=== PATIENT | male | born 1985 | race Hispanic/Latino ===

== ENCOUNTER 2018-08-30 03:58 | Emergency (ER) | payer MEDICAID, SELFPAY ==
[2018-08-30] MEDS ORDERED: HYDROCODONE/APAP 7.5/325 MG TAB ONE (04:20)
--- NOTE | 2018-08-30 05:50 | ER ---
Nurse's Notes [facility] Name: Arpit Sanchez Age: 33 yrs Sex: Male : 1985 Arrival Date: 08/30/2018 Time: 04:01 Bed 5 Private MD: Diagnosis: Contusion left elbow. Small joint effusion. Possible fracture left elbow Presentation: 08/30 04:07 Presenting complaint: Patient states: he fell backwards Tristan night injuring his left bb elbow which is hurting down his left arm pain is 7/10. Transition of care: patient was not received from another setting of care. Onset of symptoms was August 29, 2018. Risk Assessment: Do you want to hurt yourself or someone else? Patient reports no desire to harm self or others. Initial Sepsis Screen: Does the patient meet any 2 criteria? No. Patient's initial sepsis screen is negative. Does the patient have a suspected source of infection? No. Patient's initial sepsis screen is negative. Care prior to arrival: None. 04:07 Method Of Arrival: Ambulatory bb 04:07 Acuity: JUSTO 4 bb Historical: - Allergies: 04:09 No Known Allergies; bb - Home Meds: 04:09 None [Active]; bb - PMHx: 04:09 None; bb - PSHx: 04:09 ear surgery; bb - Immunization history:: Adult Immunizations up to date. - Social history:: Smoking status: Patient uses tobacco products, smokes one-half pack cigarettes per day, Patient uses alcohol, occasionally. Patient/guardian denies using street drugs. - Ebola Screening: : No symptoms or risks identified at this time. Screenin:07 Abuse screen: Denies threats or abuse. Denies injuries from another. Nutritional rr5 screening: No deficits noted. Tuberculosis screening: No symptoms or risk factors identified. Fall Risk Fall in past 12 months (25 points). Total Jensen Fall Scale indicates Low Risk Score (25-44 pts). Fall prevention measures have been instituted. Side Rails Up X 2 Frequent Obs/Assesments occuring Family Present and informed to notify staff if they need to leave bedside As available Patient and Family Educated on Fall Prevention Program and strategies. Assessment: 04:07 General: Appears in no apparent distress. uncomfortable, Behavior is calm, cooperative, rr5 appropriate for age. 04:07 Pain: Complains of pain in left elbow and wrist Pain does not radiate. Pain currently rr5 is 7 out of 10 on a pain scale. Quality of pain is described as aching, Pain began suddenly, 2-3 days ago. Is intermittent, Alleviated by repositioning. Neuro: Level of Consciousness is awake, alert, obeys commands, Oriented to person, place, time, situation. Cardiovascular: Capillary refill < 3 seconds Patient's skin is warm and dry. Respiratory: Airway is patent Respiratory effort is even, unlabored, Respiratory pattern is regular, symmetrical. GI: Abdomen is round. : No signs and/or symptoms were reported regarding the genitourinary system. EENT: No signs and/or symptoms were reported regarding the EENT system. Derm: No signs and/or symptoms reported regarding the dermatologic system. Musculoskeletal: Capillary refill < 3 seconds, Range of motion: intact in all extremities, Swelling present in left elbow. 05:35 Reassessment: Patient appears in no apparent distress at this time. Patient and/or rr5 family updated on plan of care and expected duration. Pain level reassessed. no complaints made. awaiting for ct report. Patient states feeling better. Patient states symptoms have improved. 05:56 Reassessment: Patient appears in no apparent distress at this time. Patient and/or rr5 family updated on plan of care and expected duration. Pain level reassessed. discharge instruction given and explained with no complaints made. Patient states feeling better. Patient states symptoms have improved. Vital Signs: 04:09 BP 136 / 82; Pulse 97; Resp 16 S; Temp 98(O); Pulse Ox 97% on R/A; Weight 129.27 kg bb (R); Height 6 ft. 0 in. (182.88 cm) (R); Pain 7/10; 05:10 BP 112 / 76; Pulse 88; Resp 17; Pulse Ox 99% ; rr5 04:09 Body Mass Index 38.65 (129.27 kg, 182.88 cm) bb ED Course: 04:01 Patient arrived in ED. es 04:06 Maxwell Nath MD is Attending Physician. pkl 04:07 Patient has correct armband on for positive identification. Bed in low position. Call rr5 light in reach. Side rails up X 1. Pulse ox on. NIBP on. 04:08 Triage completed. bb 04:09 Arm band placed on Patient placed in an exam room, on a stretcher, on pulse oximetry. bb Family accompanied patient. 04:11 Eduardo Walters, RN is Primary Nurse. rr5 04:41 X-ray completed. Portable x-ray completed in exam room. Patient tolerated procedure kw well. 04:42 Elbow Left 3 View XRAY In Process Unspecified. EDMS 05:[address] via wheelchair. kw1 05:27 Elbow Left Wo Con In Process Unspecified. EDMS 05:30 CT completed. Patient tolerated procedure well. Patient moved back from CT. kw1 05:48 Florian Jeff MD is Referral Physician. pkl 05:50 Clavicle/Shoulder strap applied on left clavicle/shoulder. rr5 05:57 No provider procedures requiring assistance completed. Patient did not have IV access rr5 during this emergency room visit. Administered Medications: 04:12 Drug: [place] (7.5 mg-325 mg) 1 tabs Route: PO; rr5 05:56 Follow up: Response: No adverse reaction rr5 Outcome: 05:50 Discharge ordered by . pkl 05:58 Discharged to home ambulatory, with family. rr5 05:58 Condition: stable 05:58 Instructed on discharge instructions, follow up and referral plans. medication usage, Demonstrated understanding of instructions, follow-up care, medications, Prescriptions given X 1. 06:10 Patient left the ED. rr5 Signatures: Dispatcher [employer] Maxwell Campos MD MD pkAna Rosa Tuttle Brenda, RN RN Azra Alfonso Kimberly kw1 Eduardo Walters, RN RN rr5
--- NOTE | 2018-08-30 05:50 | EDPHYS ---
Physician Documentation [facility] Name: Arpit Sanchez Age: 33 yrs Sex: Male : 1985 Arrival Date: 08/30/2018 Time: 04:01 Bed 5 Private MD: ED Physician Maxwell Nath HPI: 08/30 04:11 This 33 yrs old Male presents to ER via Ambulatory with complaints of Arm pkl Pain, Swelling. 04:11 The patient or guardian complains of contusion, injury. The complaints affect the left pkl elbow. Context: resulted from a fall. Onset: The symptoms/episode began/occurred 2 day(s) ago. Associated signs and symptoms: The patient has no apparent associated signs or symptoms. Historical: - Allergies: 04:09 No Known Allergies; bb - Home Meds: 04:09 None [Active]; bb - PMHx: 04:09 None; bb - PSHx: 04:09 ear surgery; bb - Immunization history:: Adult Immunizations up to date. - Social history:: Smoking status: Patient uses tobacco products, smokes one-half pack cigarettes per day, Patient uses alcohol, occasionally. Patient/guardian denies using street drugs. - Ebola Screening: : No symptoms or risks identified at this time. ROS: 04:11 Eyes: Negative for injury, pain, redness, and discharge, ENT: Negative for injury, pkl pain, and discharge, Neck: Negative for injury, pain, and swelling, Cardiovascular: Negative for chest pain, palpitations, and edema, Respiratory: Negative for shortness of breath, cough, wheezing, and pleuritic chest pain, Abdomen/GI: Negative for abdominal pain, nausea, vomiting, diarrhea, and constipation, Back: Negative for injury and pain, : Negative for injury, bleeding, discharge, and swelling, Skin: Negative for injury, rash, and discoloration, Neuro: Negative for headache, weakness, numbness, tingling, and seizure. 04:11 MS/extremity: Positive for pain, tenderness, of the left elbow. Exam: 04:11 Head/Face: Normocephalic, atraumatic. Eyes: Pupils equal round and reactive to light, pkl extra-ocular motions intact. Lids and lashes normal. Conjunctiva and sclera are non-icteric and not injected. Cornea within normal limits. Periorbital areas with no swelling, redness, or edema. ENT: Nares patent. No nasal discharge, no septal abnormalities noted. Tympanic membranes are normal and external auditory canals are clear. Oropharynx with no redness, swelling, or masses, exudates, or evidence of obstruction, uvula midline. Mucous membranes moist. Neck: Trachea midline, no thyromegaly or masses palpated, and no cervical lymphadenopathy. Supple, full range of motion without nuchal rigidity, or vertebral point tenderness. No Meningismus. Chest/axilla: Normal chest wall appearance and motion. Nontender with no deformity. No lesions are appreciated. Cardiovascular: Regular rate and rhythm with a normal S1 and S2. No gallops, murmurs, or rubs. Normal PMI, no JVD. No pulse deficits. Respiratory: Lungs have equal breath sounds bilaterally, clear to auscultation and percussion. No rales, rhonchi or wheezes noted. No increased work of breathing, no retractions or nasal flaring. Abdomen/GI: Soft, non-tender, with normal bowel sounds. No distension or tympany. No guarding or rebound. No evidence of tenderness throughout. Back: No spinal tenderness. No costovertebral tenderness. Full range of motion. Skin: Warm, dry with normal turgor. Normal color with no rashes, no lesions, and no evidence of cellulitis. Neuro: Awake and alert, GCS 15, oriented to person, place, time, and situation. Cranial nerves II-XII grossly intact. Motor strength 5/5 in all extremities. Sensory grossly intact. Cerebellar exam normal. Normal gait. 04:11 Musculoskeletal/extremity: Extremities: grossly normal except: noted in the left elbow: pain, swelling, tenderness. Vital Signs: 04:09 BP 136 / 82; Pulse 97; Resp 16 S; Temp 98(O); Pulse Ox 97% on R/A; Weight 129.27 kg bb (R); Height 6 ft. 0 in. (182.88 cm) (R); Pain 7/10; 05:10 BP 112 / 76; Pulse 88; Resp 17; Pulse Ox 99% ; rr5 04:09 Body Mass Index 38.65 (129.27 kg, 182.88 cm) bb MDM: 04:06 Patient medically screened. pkl 05:47 Data reviewed: vital signs, nurses notes, radiologic studies, CT scan, plain films. pkl 08/30 04:09 Order name: Elbow Left 3 View XRAY pkl 08/30 05:00 Order name: Elbow Left Wo Con EDMS Administered Medications: 04:12 Drug: [place] (7.5 mg-325 mg) 1 tabs Route: PO; rr5 05:56 Follow up: Response: No adverse reaction rr5 Disposition: 08/30/18 05:50 Discharged to Home. Impression: Contusion left elbow. Small joint effusion. Possible fracture left elbow. - Condition is Stable. - Prescriptions for Ultram 50 mg Oral Tablet - take 1 tablet by ORAL route every 8 hours As needed; 30 tablet. - Work release form, Medication Reconciliation Form, Thank You Letter, Antibiotic Education, Prescription Opioid Use form. - Follow up: Florian Jeff MD; When: 2 - 3 days; Reason: Re-evaluation by your physician. - Problem is new. - Symptoms are unchanged. Signatures: Dispatcher [employer] EDNE Maxwell Nath MD MD pkl Melody Sanabria RN RN bb Eduardo Walters RN RN rr5 Corrections: (The following items were deleted from the chart) 06:10 05:50 08/30/2018 05:50 Discharged to Home. Impression: Contusion left elbow. Small rr5 joint effusion. Possible fracture left elbow. Condition is Stable. Forms are Medication Reconciliation Form, Thank You Letter, Antibiotic Education, Prescription Opioid Use. Follow up: Florian Jeff; When: 2 - 3 days; Reason: Re-evaluation by your physician. Problem is new. Symptoms are unchanged. pkl
--- NOTE | 2018-08-30 08:41 | RAD REPORT ---
EXAM DESCRIPTION: RAD - Elbow Left 3 View - 08/30/2018 4:44 am CLINICAL HISTORY: Fall, elbow pain COMPARISON: None. FINDINGS: No fracture is identified and no elevated posterior fat pad. There is no dislocation or pe riosteal reaction noted. No foreign body or other soft tissue abnormality. IMPRESSION: Negative left elbow examination.
--- NOTE | 2018-08-30 08:49 | RAD REPORT ---
EXAM DESCRIPTION: CT - Elbow Left Wo Con - 08/30/2018 6:34 am CLINICAL HISTORY: Fall, arm pain, symptoms out of proportion to exam findings A preliminary report was provided at the time of the study and reviewed prior to final report. COMPARISON: Left elbow films same date TECHNIQUE: Axial 2 millimeter thick images of the elbow joint were obtained extending as well to mid humerus and mid forearm level. Sagittal and coronal reformatted images were generated and reviewed. The CT scan was performed using dose optimization techniques as appropriate to a performed exam incl uding one or more of the following: Automated exposure control, adjustment of the mA and/or kV accord ing to patient size (this includes techniques or standardized protocols for targeted exams where dose is matched to indication/reason for exam) and use of iterative reconstruction technique. FINDINGS: No fracture, dislocation or acute bone finding. No foreign body in the soft tissues. Contu jose and edema changes are seen in the fatty tissues posterior to the elbow joint. Minimal joint effu jose is suspected. No skeletal muscle abnormality. IMPRESSION: No fracture. No acute bone finding. Minimal joint effusion. Contusion and edema changes in the subcutaneous fatty tissues posterior to the elbow.
== END 2018-08-30 06:10 | disposition home or self-care (01) ==
LOC: ER 03:58
DX: S50.02XA Contusion of left elbow, initial encounter (principal); M25.422 Effusion, left elbow; W01.0XXA Fall on same level from slipping, tripping and stumbling without subsequent striking against object, initial encounter; Y92.9 Unspecified place or not applicable
CPT/HCPCS: 73200; 99284

== ENCOUNTER 2022-08-25 01:25 | Emergency (ER) | payer OTHER ==
--- OUTSIDE RECORDS SUMMARY | 2022-08-25 01:29 | XMS REPORT | Continuity of Care Document ---
:1985 Author Organization [facility] t Address [address] [place] [address] Care Team Providers Name Role Phone PCP, PATIENT DOES NOT HAVE A Primary Care Physician Unavaila Rush Hernandez MD Attending Clinician RUSH BLUM Attending Clinician Unavailable SASHA CARRANZA Attending Clinician Unavailable SYDNEE HANSEN Attending Clinician Unavailable RUSH BLUM Admitting Clinician Unavailable Payers Payer Name Policy Type Policy Number Effective Date Expiration Date S ource Problems Condition Condition Condition Status Onset Resolution Last Treating Co mments Source Name Details Category Date Date Treatment Clinician Date No known No known Disease Unive rs active active ity of problems problems [facility] Allergies, Adverse Reactions, Alerts Allergy Allergy Status Severity Reaction(s) Onset Inactive Treating Comm ents Source Name Type Date Date Clinician PENICILL DRUG Active Hives Univers IN INGREDI 6-15 ity of 00:00: [place] 00 [facility] Penicill Propensi Active Hives 0 Univer s in ty to 6-15 ity of adverse 00:00: [place] reaction 00 [facility] NO KNOWN Drug Active Univers ALLERGIE Class ity of S [facility] Social History Social Habit Start Date Stop Date Quantity Comments Source History of Cigarette Smoker Universi ty of tobacco use [facility] Exposure to 2022-04-09 2022-04-19 Not sure University of SARS-CoV-2 00:00:00 20:33:00 [facility] (event) [place] Tobacco use and 2020-10-26 2020-10-26 Smokeless tobacco Un iversity of exposure 00:00:00 00:00:00 non-user [facility] Sex [birth year] Universit y of 00:00:00 00:00:00 [facility] Smoking Status Start Date Stop Date Source Light tobacco smoker 2020-10-26 00:00:00 Univers ity of [facility] Medications Ordered Filled Start Stop Current Ordering Indication Dosage Frequency Signature Comments Components Source Medication Medication Date Date Medication? Clinician (SIG) Name Name acetaminoph No 1000mg 1,000 mg, Univers en 04-20 Oral, ity of (TYLENOL) 01:45: 01:42 ONCE, [place] :00 dose, On Medical 1,000 mg Mon Branch 04/19/22 at 2044, THERESE ibuprofen Yes [id number] 800mg Take 1 U nivers 800 mg 8- tablet by ity of tablet 00:00: mouth [place] 00 every 8 Medical (eight) Branch hours as needed for Temp > 38.5 C or Pain (scale 4-6). benzonatate Yes [id number] 200mg Take 1 Univers 200 mg 8- capsule by ity of capsule 00:00: mouth 3 [place] 00 (three) Medical times Branch daily as needed for Cough. ondansetron No 4mg 4 mg, Slow Univers (ZOFRAN 02-11 IV Push, ity of (PF)) 01:45: 00:52 ONCE, 1 [place] injection 4 00 :00 dose, On Medi hua mg Wed Branch 02/10/22 at 2044, THERESE morpHINE (4 2021- No 4mg 4 mg, Slow Univers mg/mL) 02-11 IV Push, ity of injection 4 01:45: 00:54 [place]CE[place] 1 [place] :[place] dose, On Medical Wed Branch 02/10/22 at 2044, STAT traMADoL Yes [id number] 50mg Take 1 Univers (ULTRAM) 50 6-15 tablet by ity of mg tablet 00:00: mouth [place] 00 every 6 Medical (six) Branch hours as needed for Pain (scale 7-10). Indication s: acute pain methocarbam 2021-0 Yes [id number] 750mg Take 1 Univers oL 750 mg 6-15 tablet by ity o f tablet 00:00: mouth [place] 00 every 6 Medical (six) Branch hours as needed for Pain (scale 7-10) (MUSCLE SPASM). traMADoL 0 Yes [id number] 50mg Take 1 Univers (ULTRAM) 50 6-15 tablet by ity of mg tablet 00:00: mouth [place] 00 every 6 Medical (six) Branch hours as needed for Pain (scale 7-10). Indication s: acute pain methocarbam 2021-0 Yes [id number] 750mg Take 1 Univers oL 750 mg 6-15 tablet by ity o f tablet 00:00: mouth [place] 00 every 6 Medical (six) Branch hours as needed for Pain (scale 7-10) (MUSCLE SPASM). predniSONE Yes 2 tabs now Univers 20 mg 2-28 and each ity of tablet 00:00: morning [place] 00 for 5 Medical doses, Branch then 1 tab each morning for 5 days. hydrOXYzine 2020-0 Yes 1-2 tabs Univers 25 mg 2-28 Every ity of tablet 00:00: 3-6hr as [place] 00 needed for Medical itch or Branch rash, at least 3 times a day. predniSONE 2020-0 Yes 2 tabs now Univers 20 mg 2-28 and each ity of tablet 00:00: morning [place] 00 for 5 Medical doses, Branch then 1 tab each morning for 5 days. hydrOXYzine 2020-0 Yes [id number] 1-2 tabs Univers 25 mg 2-28 Every ity of tablet 00:00: 3-6hr as [place] 00 needed for Medical itch or Branch rash, at least 3 times a day. predniSONE 2020-0 Yes [id number] 2 tabs now Univers 20 mg 2-28 and each ity of tablet 00:00: morning [place] 00 for 5 Medical doses, Branch then 1 tab each morning for 5 days. hydrOXYzine 2020-0 Yes [id number] 1-2 tabs Univers 25 mg 2-28 Every ity of tablet 00:00: 3-6hr as [place] 00 needed for Medical itch or Branch rash, at least 3 times a day. traMADOL 50 2017-0 Yes 50mg Take 1 Univ ers mg tablet 3-11 tablet by ity o f 00:00: mouth [place] 00 every 6 Medical (six) Branch hours as needed for Pain (scale 4-6). etodolac 2017-0 Yes 500mg Take 1 Univer s 500 mg 3-11 tablet by ity of tablet 00:00: mouth 2 [place] 00 (two) Medical times Branch daily. traMADOL 50 2017-0 Yes 50mg Take 1 Univ ers mg tablet 3-11 tablet by ity o f 00:00: mouth [place] 00 every 6 Medical (six) Branch hours as needed for Pain (scale 4-6). etodolac 2017-0 Yes 500mg Take 1 Univer s 500 mg 3-11 tablet by ity of tablet 00:00: mouth 2 00 (two) Medical times Branch daily. traMADOL 50 2016-0 Yes 50mg Take 1 Univ ers mg tablet 3-11 tablet by ity o f 00:00: mouth [place] 00 every 6 Medical (six) Branch hours as needed for Pain (scale 4-6). etodolac 2017-0 Yes 500mg Take 1 Univer s 500 mg 3-11 tablet by ity of tablet 00:00: mouth 2 00 (two) Medical times Branch daily. Vital Signs Vital Name Observation Time Observation Value Comments Source Systolic blood 2022-04-20 01:34:00 139 mm[Hg] Univer sity [facility] Diastolic blood 2022-04-20 01:34:00 91 [facility]Hg[facility] 2022-04-20 01:34:00 96 /min [facility] Body temperature 2022-04-20 01:34:00 37.94 Laura [facility] Respiratory rate 2022-04-20 01:34:00 18 /min [facility] Body height 2022-04-20 01:34:00 182.9 cm [facility] Body weight 2022-04-20 01:34:00 136.079 kg [facility] BMI 2022-04-20 01:34:00 40.69 kg/m2 [facility] Oxygen saturation in 2022-04-20 01:34:00 96 /min University of Arterial blood by [facility] hua Pulse oximetry Branch Systolic blood 2022-02-11 02:15:00 131 mm[Hg] Univer sity of pressure [place] [facility] Diastolic blood 2022-02-11 02:15:00 94 mm[Hg] Unive rsity of pressure [place] [facility] Heart rate 2022-02-11 02:15:00 73 /min Universi ty [facility] [place] [facility] Respiratory rate 2022-02-11 02:15:00 21 /min Univ ers[facility] [place] [facility] Oxygen saturation in 2022-02-11 02:15:00 97 /min University of Arterial blood by [facility] Pulse oximetry Branch BMI 2022-02-10 23:23:00 40.69 kg/m2 [facility]i ty [facility] [place] [facility] Body temperature 2022-02-10 23:23:00 36.61 Laura [facility] [place] [facility] Body height 2022-02-10 23:23:00 182.9 cm [facility]i ty [facility] [place] [facility] Body weight 2022-02-10 23:23:00 136.079 kg [facility]i ty [facility] [place] [facility] Systolic blood 2021-12-12 01:50:00 141 mm[Hg] Univer sity of pressure [place] [facility] Diastolic blood 2021-12-12 01:50:00 74 mm[Hg] Unive rsity of pressure [place] [facility] Heart rate 2021-12-12 01:50:00 100 /min [facility]i [facility] [place] [facility] Body temperature 2021-12-12 01:50:00 36.06 Laura [facility] [place] [facility] Respiratory rate 2021-12-12 01:50:00 20 /min Univ ers[facility] [place] [facility] Body height 2021-12-12 01:50:00 182.9 cm [facility] [place] [facility] Body weight 2021-12-12 01:50:00 129.275 kg [facility] [place] [facility] BMI 2021-12-12 01:50:00 38.65 kg/m2 Universi ty of [place] [facility] Oxygen saturation in 2021-12-12 01:50:00 95 /min University of Arterial blood by [facility] Pulse oximetry Branch Procedures Procedure Date / Time Performed Performing Clinician Sourc e XR CHEST 1 VW 2022-04-20 01:54:23 Rush Blum [facility] COVID-19 (ID NOW RAPID 2022-04-20 01:42:00 Rush Blum [facility] TESTING) Medical Branch CONSENT/REFUSAL FOR 2022-04-20 01:20:19 Doctor Unassigned, No Un [facility] [place] DIAGNOSIS AND Name Medical Branch TREATMENT CT ABDOMEN PELVIS WO 2022-02-11 01:47:37 Rush Blum [facility] CONTRAST Medical Branch COMP. METABOLIC PANEL 2022-02-11 00:33:00 Rush Blum [facility] ([id number]) Medical Branch CBC WITH DIFF 2022-02-11 00:33:00 Rush Blum [facility] URINALYSIS 2022-02-11 00:33:00 Rush Blum [facility] CONSENT/REFUSAL FOR 2022-02-10 23:29:44 Doctor Unassigned, No [facility] [place] DIAGNOSIS AND Name Medical Branch TREATMENT NOTICE OF PRIVACY 2021-12-12 01:39:15 Doctor Unassigned, No [facility] PRACTICES Name Medical Branch CONSENT/REFUSAL FOR 2021-12-12 01:38:54 [facility]igned, No [facility] AND Name Medical Branch TREATMENT Encounters Start End Encounter Admission Attending Care Care Encounter Source Date/Time Date/Time Type Type Clinicians Facility Department ID 2022-04-19 2022-04-19 Emergency [facility] [id number] Univers 20:36:00 21:46:00 Rush COUGHLIN [id number] darrell [facility] [id number] [facility] [id number] Medi hua 084 Branch 2022-04-19 2022-04-19 Emergency X ON LICENSE OF [facility] ERT [id number] Univers 20:36:00 21:46:00 RUSH ramírez [facility] 2022-02-10 2022-02-10 Emergency X ON LICENSE OF [facility] ERT [id number] Univers 18:25:00 22:31[facility] 2022-[facility]-10 2022-02-10 Emergency [facility] [id number] Univers 18:25:00 22:31:00 [id number] [id number] [facility] [id number] [address] 2021-12-11 2021-12-11 Emergency X ON LICENSE OF [facility] ERT [id number] Univers 20:55:00 22:13:00 [facility] 2021-12-11 2021-12-11 Emergency [facility] [id number] Univers 20:55:00 22:13:00 [id number] [facility] [id number] [facility] [id number] [address] 2021-04-06 2021-04-06 [facility] [id number] Univers 20:20:00 20:20:00 SAM[facility]LENEKaren [facility] 2020-10-26 2020-10-26 Outpatient [facility] [id number] Univers 16:00:00 16:00:00 SYDNEE ity o f [facility] Results Test Description Test Time Test Comments Results Result Comments Source COMP. METABOLIC PANEL (77804) 2022-02-11 01:00:36 Test Item Value Reference Range Interpretation Comme nts NA (test code = 9886130449) 139 mmol/L 135-145 K (test code = 4905952420) 4.4 mmol/L 3.5-5.0 CL (test code = 9019213355) 108 mmol/L 98-108 CO2 TOTAL (test code = 4151513605) 22 mmol/L 23-31 L AGAP (test code = 0382071382) 2-16 BUN (test code = 7978354006) 14 mg/dL 7-23 GLUCOSE (test code = 2638080767) 101 mg/dL 70-110 CREATININE (test code = 0.81 mg/dL 0.60-1.25 4093145053) TOTAL BILI (test code = 1.1 mg/dL 0.1-1.3 7603718625) CALCIUM (test code = 8550762957) 9.0 mg/dL 8.6-10.6 T PROTEIN (test code = 8841366046) 7.1 g/dL 6.3-8.2 ALBUMIN (test code = 4507265774) 4.2 g/dL 3.5-5.0 ALK PHOS (test code = 1874062318) 96 U/L 34-122 ALTv (test code = 1742-6) 78 U/L 5-50 H AST(SGOT) (test code = 1117469314) 58 U/L 13-40 H eGFR (test code = 1454263630) mL/min/1.73m2 DANIELA (test code = DANIELA) Association of Glomerular Filtration Rate (GFR) and Staging of Kidney Disease* + +-------- + ------+| GFR (mL/min/1.73 m2) ?| With Kidney Damage ?| ?Without Kidney Damage+ +-- + +| ?>90 ?| ?Stage one ?| ? Normal ?+ +------- + -------+| ?60-89 ?| ?Stage two ?| ? Decreased GFR ? + +-------- + ------+| ?30-59 ?| ?Stage three ?| ? Stage three ? + +-------- + ------+| ?15-29 ?| ?Stage four ? | ? Stage four ?+ +------- + -------+| ?<15 (or dialysis) ? ?| ?Stage five ? | ? Stage five ?+ +------- + -------+ *Each stage assumes the associated GFR level has been in effect for at least three months. ?Stages 1 to 5, with or without kidney disease, indicate chronic kidney disease. Notes: Determination of stages one and two (with eGFR >59mL/min/1.73 m2) requires estimation of kidney damage for at least three months as defined by structural or functional abnormalities of the kidney, manifested by either:Pathological abnormalities or Markers of kidney damage (including abnormalities in the composition of the blood or urine or abnormalities in imaging tests). Lab Interpretation (test code = Abnormal 60842-9) [facility] WITH SYYH4904-12-49 00:57:55 Test Item Value Reference Range Interpretation Comments WBC (test code = See_Comment [Automated 6690-2) message] The sy stem which generated this result transmitted reference range : 4.20 - 10.70 10*3/?L. The reference range was not used to interpret this result as normal/abnormal . RBC (test code = See_Comment [Automated 789-8) message] The sy stem which generated this result transmitted reference range : 4.26 - 5.52 10*6/?L. The reference range was not used to interpret this result as normal/abnormal . HGB (test code = 17.3 g/dL 12.2-16.4 H 718-7) HCT (test code = 49.6 % 38.4-49.3 H 4544-3) MCV (test code = 92.7 fL 81.7-95.6 787-2) MCH (test code = 32.3 pg 26.1-32.7 785-6) MCHC (test code = 34.9 g/dL 31.2-35.0 786-4) RDW-SD (test code = 41.1 fL 38.5-51.6 20692-3) RDW-CV (test code = 12.0 % 12.1-15.4 L 788-0) PLT (test code = See_Comment [Automated 777-3) message] The sy stem which generated this result transmitted reference range : 150 - 328 10*3/ ?L. The reference r clovis was not used to interpret this result as normal/abnormal . MPV (test code = 11.9 fL 9.8-13.0 98715-0) NRBC/100 WBC (test See_Comment [Automat ed code = 3362985534) message] The system which generated this result transmitted reference range : 0.0 - 10.0 /100 WBCs. The refer ence range was not u sed to interpret th is result as normal/abnormal . NRBC x10^3 (test code <0.01 See_Comment [Auto mated = 1319513153) message] The s ystem which generated this result transmitted reference range : 10*3/?L. The reference range was not used to interpret this result as normal/abnormal . GRAN MAT (NEUT) % 52.6 % (test code = 770-8) IMM GRAN % (test code 0.50 % = 6261991041) LYMPH % (test code = 34.9 % 736-9) MONO % (test code = 8.9 % 5905-5) EOS % (test code = 2.4 % 713-8) BASO % (test code = 0.7 % 706-2) GRAN MAT x10^3(ANC) 3.99 10*3/uL 1.99-6.95 (test code = 0530176754) IMM GRAN x10^3 (test 0.04 10*3/uL 0.00-0.06 code = 7751654732) LYMPH x10^3 (test code 2.64 10*3/uL 1.09-3.23 = 731-0) MONO x10^3 (test code 0.67 10*3/uL 0.36-1.02 = 742-7) EOS x10^3 (test code = 0.18 10*3/uL 0.06-0.53 711-2) BASO x10^3 (test code 0.05 10*3/uL 0.01-0.09 = 704-7) Lab Interpretation Abnormal (test code = 94534-5) [facility]"
--- NOTE | 2022-08-25 02:42 | ER ---
Nurse's Notes [facility] Name: Arpit Sanchez Age: 37 yrs Sex: Male : 1985 Arrival Date: 08/25/2022 Time: : Bed IW1 Private MD: Diagnosis: Headache;Acute pharyngitis, unspecified Presentation: 08/25 01:51 Chief complaint: Patient states: pain to sinus area x 2 days reports nasal congestion. Coronavirus screen: Vaccine status: Patient reports receiving the 2nd dose of the covid vaccine. Ebola Screen: Patient negative for fever greater than or equal to 101.5 degrees Fahrenheit, and additional compatible Ebola Virus Disease symptoms. Initial Sepsis Screen: Does the patient meet any 2 criteria? No. Patient's initial sepsis screen is negative. Risk Assessment: Do you want to hurt yourself or someone else? Patient reports no desire to harm self or others. 01:51 Method Of Arrival: Ambulatory 01:51 Acuity: JUSTO 4 03:28 Onset of symptoms was August 24, 2022 at 20:20. 03:28 Initial Sepsis Screen: Does the patient have a suspected source of infection? No. kl Patient's initial sepsis screen is negative. Triage Assessment: 01:54 General: Appears in no apparent distress. comfortable, Behavior is calm, cooperative. Pain: Complains of pain in face Pain currently is 8 out of 10 on a pain scale. EENT: Reports nasal congestion pain. Historical: - Allergies: 01:53 PENICILLINS; - Home Meds: 01:53 None [Active]; kl - PMHx: 01:53 None; - PSHx: 01:53 None; - Immunization history:: Adult Immunizations not up to date. - Social history:: Smoking status: Patient reports the use of cigarette tobacco products, smokes one pack cigarettes per day. Screenin:27 [facility] ED Fall Risk Assessment (Adult) History of falling in the last 3 months, including since admission No falls in past 3 months (0 pts) Confusion or Disorientation No (0 pts) Intoxicated or Sedated No (0 pts) Impaired Gait No (0 pts) Mobility Assist Device Used No (0 pt) Altered Elimination No (0 pt) Score/Fall Risk Level 0 - 2 = Low Risk Oriented to surroundings, Maintained a safe environment, Educated pt \T\ family on fall prevention, incl call for assistance when getting out of bed. Abuse screen: Denies threats or abuse. Nutritional screening: No deficits noted. Tuberculosis screening: No symptoms or risk factors identified. Assessment: 03:27 Reassessment: Patient appears in no apparent distress at this time. Patient and/or kl family updated on plan of care and expected duration. Pain level reassessed. Patient is alert, oriented x 3, equal unlabored respirations, skin warm/dry/pink. Patient states symptoms have improved. Vital Signs: 01:51 Pain 8/10; kl 01:59 BP 152 / 97; Pulse 95; Resp 20; Temp 98.3; Pulse Ox 98% on R/A; Weight 154.22 kg (R); kl Height 6 ft. (182.88 cm); Pain 8/10; 01:59 Body Mass Index 46.11 (154.22 kg, 182.88 cm) ED Course: 01:28 Patient arrived in ED. [email or web address] 01:34 Kelby Louie PA is PHCP. cp 01:34 Isaac Hernandez MD is Attending Physician. cp 01:53 Triage completed. kl 02:02 Strep Sent. kl 02:45 Strep Sent. kl 03:28 No provider procedures requiring assistance completed. Patient did not have IV access kl during this emergency room visit. 03:28 Patient has correct armband on for positive identification. kl 03:28 Antipyretic given from triage as ordered by the ER provider. Administered Medications: 03:18 Drug: Tylenol 650 mg Route: PO; kl 03:19 Drug: Ibuprofen 800 mg Route: PO; Medication: 03:28 VIS not applicable for this client. Outcome: 02:41 Discharge ordered by . cp 03:28 Discharged to home ambulatory, with family. kl 03:28 Condition: stable 03:28 Discharge instructions given to patient, family, Instructed on discharge instructions, follow up and referral plans. medication usage, Demonstrated understanding of instructions, follow-up care, medications, Prescriptions given X 2. 03:29 Patient left the ED. Signatures: Marah Monge RN RN Kelby Fajardo PA PA cp Jeffries, Jennifer [email or web address]
--- NOTE | 2022-08-25 02:42 | EDPHYS ---
Physician Documentation [facility] Name: Arpit Sanchez Age: 37 yrs Sex: Male : 1985 Arrival Date: 08/25/2022 Time: : Bed IW1 Private MD: ED Physician Isaac Hernandez HPI: 08/25 02:00 This 37 yrs old Male presents to ER via Ambulatory with complaints of Facial cp Pressure/Pain (Forehead and Under Eyes). 02:00 The patient complains of pain to the left baptist. The patient describes the headache as cp aching. Onset: The symptoms/episode began/occurred 2 day(s) ago. Associated signs and symptoms: Pertinent positives: sinus congestion, radiating pain to bilateral upper jaw and gumline, Pertinent negatives: altered mental status, fever, neck stiffness, vision changes, vomiting. Severity of symptoms: in the emergency department the pain is unchanged, despite home interventions. Historical: - Allergies: 01:53 PENICILLINS; kl - Home Meds: 01:53 None [Active]; kl - PMHx: 01:53 None; kl - PSHx: 01:53 None; kl - Immunization history:: Adult Immunizations not up to date. - Social history:: Smoking status: Patient reports the use of cigarette tobacco products, smokes one pack cigarettes per day. ROS: 02:05 Constitutional: Negative for body aches, chills, fever, poor PO intake. cp 02:05 Eyes: Negative for injury, pain, redness, and discharge. cp 02:05 ENT: Positive for sinus congestion, sore throat. 02:05 Cardiovascular: Negative for chest pain, palpitations. 02:05 Respiratory: Negative for cough, shortness of breath, wheezing. 02:05 Skin: Negative for cellulitis, rash. 02:05 All other systems are negative. Exam: 02:15 Eyes: Pupils equal round and reactive to light, extra-ocular motions intact. Lids and cp lashes normal. Conjunctiva and sclera are non-icteric and not injected. Cornea within normal limits. Periorbital areas with no swelling, redness, or edema. 02:15 Constitutional: The patient appears in no acute distress, alert, awake, non-toxic, well developed, well nourished, obese. 02:15 Head/face: Sinus tenderness, that is mild, is located over the right frontal sinus and left frontal sinus. 02:15 ENT: External ear(s): are unremarkable, Ear canal(s): are normal, clear, TM's: dullness, bilaterally, Nose: is normal, Mouth: Lips: moist, Oral mucosa: pink and intact, moist, Posterior pharynx: Airway: no evidence of obstruction, patent, Tonsils: no enlargement, no exudate, erythema, that is mild, exudate, is not appreciated, Dental exam: pain, is not appreciated, Voice: is normal. 02:15 Neck: ROM/movement: is normal, is supple, without pain, no range of motions limitations, no meningismus. 02:15 Chest/axilla: Inspection: normal. 02:15 Cardiovascular: Rate: normal, Rhythm: regular. 02:15 Respiratory: the patient does not display signs of respiratory distress, Respirations: normal, no use of accessory muscles, no retractions, labored breathing, is not present, Breath sounds: are clear throughout, no decreased breath sounds, no stridor, no wheezing. 02:15 Abdomen/GI: Exam negative for discomfort, distension, guarding, Inspection: abdomen appears normal. 02:15 Skin: cellulitis, is not appreciated, no rash present. 02:15 Neuro: Orientation: to person, place \T\ time. Mentation: is normal, Motor: moves all fours, strength is normal, Sensation: is normal, Gait: is steady, at a normal pace, without difficulty. Vital Signs: 01:51 Pain 8/10; kl 01:59 BP 152 / 97; Pulse 95; Resp 20; Temp 98.3; Pulse Ox 98% on R/A; Weight 154.22 kg (R); kl Height 6 ft. (182.88 cm); Pain 8/10; 01:59 Body Mass Index 46.11 (154.22 kg, 182.88 cm) kl MDM: 02:40 Data reviewed: vital signs, nurses notes, and as a result, I will discharge patient. cp 02:40 Differential diagnosis: sinusitis, tension headache, strep throat. Counseling: I had a cp detailed discussion with the patient and/or guardian regarding: the historical points, exam findings, and any diagnostic results supporting the discharge/admit diagnosis, to return to the emergency department if symptoms worsen or persist or if there are any questions or concerns that arise at home. 02:41 Patient medically screened. cp 08/25 01:48 Order name: Strep cp Administered Medications: 03:18 Drug: Tylenol 650 mg Route: PO; kl 03:19 Drug: Ibuprofen 800 mg Route: PO; pat Disposition Summary: 08/25/22 02:41 Discharge Ordered Location: Home cp Problem: new cp Symptoms: have improved cp Condition: Stable cp Diagnosis - Headache cp - Acute pharyngitis, unspecified cp Followup: cp - With: Private Physician - When: 2 - 3 days - Reason: Worsening of condition Discharge Instructions: - Discharge Summary Sheet cp - General Headache Without Cause cp - Pharyngitis cp - Sore Throat cp Forms: - Medication Reconciliation Form cp - Thank You Letter cp - Antibiotic Education cp - Prescription Opioid Use cp - Work release form Prescriptions: - Naprosyn 500 mg Oral Tablet - take 1 tablet by ORAL route 2 times per day take with food; 20 tablet; Refills: cp 0, Product Selection Permitted - cefdinir 300 mg Oral capsule - take 1 capsule by ORAL route every 12 hours for 10 days; 20 capsule; Refills: cp 0, Product Selection Permitted Signatures: Dispatcher [employer] EDMarah Saunders RN RN kl Page, Corey, PA PA cp Corrections: (The following items were deleted from the chart) 20:41 20:39 This 37 yrs old Male presents to ER via Ambulatory with complaints of cp Facial Pressure/Pain (Forehead and Under Eyes). cp 20:44 08/24 02:15 Constitutional: The patient appears in no acute distress, alert, awake, cp non-toxic, well developed, well nourished, obese, cp 08/25 20:44 08/24 02:15 Head/face: Sinus tenderness, that is mild, is located over the right cp frontal sinus and left frontal sinus, cp 08/25 20:44 08/24 02:15 Eyes: Pupils equal round and reactive to light, extra-ocular motions cp intact. Lids and lashes normal. Conjunctiva and sclera are non-icteric and not injected. Cornea within normal limits. Periorbital areas with no swelling, redness, or edema. cp 08/25 20:44 08/24 02:15 ENT: External ear(s): are unremarkable, Ear canal(s): are normal, clear, cp TM's: dullness, bilaterally, Nose: is normal, Mouth: Lips: moist, Oral mucosa: pink and intact, moist, Posterior pharynx: Airway: no evidence of obstruction, patent, Tonsils: are normal in appearance, erythema, is not appreciated, exudate, is not appreciated, Dental exam: pain, is not appreciated, Voice: is normal, cp 08/25 20:44 08/24 02:15 Neck: ROM/movement: is normal, is supple, without pain, no range of motions cp limitations, no meningismus, cp 08/25 20:44 08/24 02:15 Chest/axilla: Inspection: normal, cp cp 08/25 20:44 08/24 02:15 Cardiovascular: Rate: normal, Rhythm: regular, cp cp 08/25 20:08/24 02:15 Respiratory: the patient does not display signs of respiratory distress, cp Respirations: normal, no use of accessory muscles, no retractions, labored breathing, is not present, Breath sounds: are clear throughout, no decreased breath sounds, no stridor, no wheezing, cp 08/25 20:44 08/24 02:15 Abdomen/GI: Exam negative for discomfort, distension, guarding, Inspection: cp abdomen appears normal, cp 08/25 20:44 08/24 02:15 Neuro: Orientation: to person, place \T\ time. Mentation: is normal, Motor: cp moves all fours, strength is normal, Sensation: is normal, Gait: is steady, at a normal pace, without difficulty, cp 08/25 20:44 08/24 02:15 Skin: cellulitis, is not appreciated, no rash present. cp cp 08/25 20:46 02:15 ENT: External ear(s): are unremarkable, Ear canal(s): are normal, clear, TM's: cp dullness, bilaterally, Nose: is normal, Mouth: Lips: moist, Oral mucosa: pink and intact, moist, Posterior pharynx: Airway: no evidence of obstruction, patent, Tonsils: are normal in appearance, erythema, is not appreciated, exudate, is not appreciated, Dental exam: pain, is not appreciated, Voice: is normal, cp
[2022-08-25] MEDS ORDERED: IBUPROFEN 400 MG TAB ONE (03:17)
[2022-08-25] MEDS ORDERED: ACETAMINOPHEN 325 MG TABLET ONE (03:17)
[2022-08-25 03:34] VITALS: BP 152/97; TEMP 98.3; O2SAT 98
== END 2022-08-25 03:29 | disposition home or self-care (01) ==
LOC: ER 01:25
DX: R51.9 Headache, unspecified (principal); J02.9 Acute pharyngitis, unspecified; F17.210 Nicotine dependence, cigarettes, uncomplicated; Z88.0 Allergy status to penicillin
CPT/HCPCS: 87070; 87081

== ENCOUNTER 2023-02-08 20:08 | Emergency (ER) | payer BC, OTHER ==
--- OUTSIDE RECORDS SUMMARY | 2023-02-08 20:11 | XMS REPORT | Continuity of Care Document ---
:1985 Author Organization [facility] t Address [address] [place] [address] Care Team Providers Name Role Phone PCP, [...] rs active active ity of problems problems [facility] Allergies, Adverse Reactions, Alerts Allergy Allergy Status Severity Reaction(s) Onset Inactive Treating Comm ents Source Name Type Date Date Clinician PENICILL DRUG Active Hives Univers IN INGREDI 6-15 ity of 00:00: [place] 00 [facility] Penicill Propensi Active Hives 0 Univer s in ty to 6-15 ity of adverse 00:00: [place] reaction 00 [facility] NO KNOWN Drug Active Univers ALLERGIE Class ity of S [facility] Social History Social Habit Start Date Stop Date Quantity Comments Source History of Cigarette Smoker Universi ty of tobacco use [facility] Exposure to 2022-04-09 2022-04-19 Not sure University of SARS-CoV-2 00:00:00 20:33:00 [facility] (event) [place] Tobacco use and 2020-10-26 2020-10-26 Smokeless tobacco Un iversity of exposure 00:00:00 00:00:00 non-user [facility] Sex Ass[birth year] Universit y of 00:00:00 00:00:00 [facility] Smoking Status Start Date Stop Date Source Light tobacco smoker 2020-10-26 00:00:00 Univers ity of [facility] Medications Ordered Filled Start Stop Current Ordering Indication Dosage Frequency Signature Comments Components Source Medication Medication Date Date Medication? Clinician (SIG) Name Name acetaminoph No 1000mg 1,000 mg, Univers en 04-20 Oral, ity of (TYLENOL) 01:45: 01:42 ONCE, 1 [place] tablet 00 :00 dose, On Medical 1,000 mg Mon Branch 04/19/22 at 2044, THERESE ibuprofen Yes [id number] 800mg Take 1 U nivers 800 mg 8- tablet by ity of tablet 00:00: mouth [place] 00 every 8 Medical (eight) Branch hours as needed for Temp > 38.5 C or Pain (scale 4-6). benzonatate Yes [id number] 200mg Take 1 Univers 200 mg 8- [...] Indication s: acute pain methocarbam 2021-0 Yes [id number] 750mg Take 1 Univers oL 750 mg [...] Indication s: acute pain methocarbam 2021-0 Yes [id number] 750mg Take 1 Univers oL 750 mg [...] morning for 5 days. hydrOXYzine 2020-0 Yes [id number] 1-2 tabs Univers 25 mg 2-28 Every ity of tablet 00:00: 3-6hr as [place] 00 needed for Medical itch or Branch rash, at least 3 times a day. predniSONE 2020-0 Yes [id number] 2 tabs now Univers 20 mg 2-28 and each ity of tablet 00:00: morning [place] 00 for 5 Medical doses, Branch then 1 tab each morning for 5 days. hydrOXYzine 2020-0 Yes [id number] 1-2 tabs Univers 25 mg 2-28 Every [...] blood 2022-04-20 01:34:00 139 mm[Hg] Univer sity [facility] Diastolic blood 2022-04-20 01:34:00 91 mm[Hg] [facility] 2022-04-20 01:34:00 96 /min [facility] Body temperature 2022-04-20 01:34:00 37.94 Laura [facility] Respiratory rate 2022-04-20 01:34:00 18 /min [facility] Body height 2022-04-20 01:34:00 182.9 cm [facility] Body weight 2022-04-20 01:34:00 136.079 kg [facility] BMI 2022-04-20 01:34:00 40.69 kg/m2 [facility] Oxygen saturation in 2022-04-20 01:34:00 96 /min University of Arterial blood by [facility] hua Pulse oximetry Branch Systolic blood 2022-02-11 02:15:00 131 mm[Hg] Univer sity of pressure [facility] [place] [facility] Diastolic blood 2022-02-11 02:15:00 94 mm[Hg] Unive rsity of pressure [facility] [place] [facility] Heart rate 2022-02-11 02:15:00 73 /min Universi ty [facility] [place] [facility] Respiratory rate 2022-02-11 02:15:00 21 /min Univ ersity [facility] [place] [facility] Oxygen saturation in 2022-02-11 02:15:00 97 /min University of Arterial blood by [facility] Pulse oximetry Branch BMI 2022-02-10 23:23:00 40.69 kg/m2 [facility] [place] [facility] Body temperature 2022-02-10 23:23:00 36.61 Laura [facility] [place] [facility] Body height 2022-02-10 23:23:00 182.9 cm [facility]i ty [facility] [place] [facility] Body weight 2022-02-10 23:23:00 136.079 kg [facility]i ty [facility] [place] [facility] Systolic blood 2021-12-12 01:50:00 141 mm[Hg] Univer sity of pressure [facility] Diastolic blood 2021-12-12 01:50:00 74 mm[Hg] Unive rsity of pressure [facility] [place] [facility] Heart rate 2021-12-12 01:50:00 100 /min [facility] [place] [facility] Body temperature 2021-12-12 01:50:00 36.06 Laura Univ ers[facility] [place] [facility] Respiratory rate 2021-12-12 01:50:00 20 /min Univ ers[facility] [place] [facility] Body height 2021-12-12 01:50:00 182.9 cm [facility] [place] [facility] Body weight 2021-12-12 01:50:00 129.275 kg [facility] [place] [facility] BMI 2021-12-12 01:50:00 38.65 kg/m2 [facility]i ty [facility] [place] [facility] Oxygen saturation in 2021-12-12 01:50:00 95 /min University of Arterial blood by [facility] Pulse oximetry Branch Procedures Procedure Date / Time Performed Performing Clinician Sourc e XR CHEST 1 VW 2022-04-20 01:54:23 Rush Blum [facility] COVID-19 (ID NOW RAPID 2022-04-20 01:42:00 Rush Blum [facility] TESTING) Medical Branch CONSENT/REFUSAL FOR 2022-04-20 01:20:19 Doctor Unassigned, No [facility] [place] DIAGNOSIS AND Name Medical Branch TREATMENT CT ABDOMEN PELVIS WO 2022-02-11 01:47:37 Rush Blum [facility] CONTRAST Medical Branch COMP. METABOLIC PANEL 2022-02-11 00:33:00 Rush Blum [facility] ([id number]) Medical Branch CBC WITH DIFF 2022-02-11 00:33:00 Rush Blum [facility] URINALYSIS 2022-02-11 00:33:00 Rush Blum [facility] CONSENT/REFUSAL FOR 2022-02-10 23:29:44 Doctor Unassigned, No [facility] [place] [facility] AND Name Medical Branch TREATMENT NOTICE OF PRIVACY 2021-12-12 01:39:15 Doctor Unassigned, No [facility] PRACTICES Name Medical Branch CONSENT/REFUSAL FOR 2021-12-12 01:38:54 [facility] Name Medical Branch TREATMENT Encounters Start End Encounter Admission Attending Care Care Encounter Source Date/Time Date/Time Type Type Clinicians Facility Department ID 2022-04-19 2022-04-19 Emergency Formerly [facility] [id number] Univers 20:36:00 21:46:00 Rush COUGHLIN [id number] darrell [facility] [id number] [facility] [id number] Medi hua 084 Branch 2022-04-19 2022-04-19 Emergency X [facility] ERT [id number] Univers 20:36:00 21:46:00 RUSH [facility]rez [facility] 2022-02-10 2022-02-10 Emergency X [facility] ERT [id number] Univers 18:25:00 [facility]31[facility] 2022-02-10 2022-02-10 Emergency [facility] [id number] Univers 18:25:00 22:31:00 Rush [id number] [id number] [facility] [id number] [address] 2021-12-11 2021-12-11 Emergency X [facility] ERT [id number] Univers 20:55:00 22:13:00 [facility] 2021-12-11 2021-12-11 Emergency Formerly [facility] [id number] Univers 20:55:00 22:13:00 [id number] [facility] [id number] [facility] [id number] [address] 2021-04-06 2021-04-06 [facility] [id number] Univers 20:20:00 20:20:00 SAMUELEARLENEKaren [facility] 2020-10-26 2020-10-26 [facility] [id number] Univers 16:00:00 16:00:00 SYDNEE ity o f [facility] Results Test Description Test Time Test Comments Results Result Comments Source COMP. METABOLIC PANEL (75139) 2022-02-11 01:00:36 Test Item Value Reference Range Interpretation Comme nts NA (test code = 5693466832) 139 mmol/L 135-145 K (test code = 7748597205) 4.4 mmol/L 3.5-5.0 CL (test code = 7786582753) 108 mmol/L 98-108 CO2 TOTAL (test code = 2760327949) 22 mmol/L 23-31 L AGAP (test code = 7883770286) 2-16 BUN (test code = 9971182796) 14 mg/dL 7-23 GLUCOSE (test code = 9360773393) 101 mg/dL 70-110 CREATININE (test code = 0.81 mg/dL 0.60-1.25 4144910881) TOTAL BILI (test code = 1.1 mg/dL 0.1-1.3 9775226362) CALCIUM (test code = 2303406590) 9.0 mg/dL 8.6-10.6 T PROTEIN (test code = 8159550507) 7.1 g/dL 6.3-8.2 ALBUMIN (test code = 1653420013) 4.2 g/dL 3.5-5.0 ALK PHOS (test code = 5683095010) 96 U/L 34-122 ALTv (test code = 1742-6) 78 U/L 5-50 H AST(SGOT) (test code = 7178262956) 58 U/L 13-40 H eGFR (test code = 6228654199) mL/min/1.73m2 DANIELA (test code = DANIELA) Association [...] tests). Lab Interpretation (test code = Abnormal 99768-3) [facility] WITH [id number] 00:57:55 Test Item Value Reference Range Interpretation [...] RDW-SD (test code = 41.1 fL 38.5-51.6 15305-7) RDW-CV (test code = 12.0 % 12.1-15.4 L 788-0) PLT (test code = See_Comment [Automated 777-3) message] The sy stem which generated this result transmitted reference range : 150 - 328 10*3/ ?L. The reference r clovis was not used to interpret this result as normal/abnormal . MPV (test code = 11.9 fL 9.8-13.0 48735-7) NRBC/100 WBC (test See_Comment [Automat ed code = 7099079039) message] The system which generated this result transmitted reference range : 0.0 - 10.0 /100 WBCs. The refer ence range was not u sed to interpret th is result as normal/abnormal . NRBC x10^3 (test code <0.01 See_Comment [Auto mated = 3335227354) message] The s ystem which generated this result transmitted reference range : 10*3/?L. The reference range was not used to interpret this result as normal/abnormal . GRAN MAT (NEUT) % 52.6 % (test code = 770-8) IMM GRAN % (test code 0.50 % = 1048042243) LYMPH % (test code = 34.9 % 736-9) MONO % (test code = 8.9 % 5905-5) EOS % (test code = 2.4 % 713-8) BASO % (test code = 0.7 % 706-2) GRAN MAT x10^3(ANC) 3.99 10*3/uL 1.99-6.95 (test code = 0090799912) IMM GRAN x10^3 (test 0.04 10*3/uL 0.00-0.06 code = 4429219674) LYMPH x10^3 (test code 2.64 10*3/uL 1.09-3.23 = 731-0) MONO x10^3 (test code 0.67 10*3/uL 0.36-1.02 = 742-7) EOS x10^3 (test code = 0.18 10*3/uL 0.06-0.53 711-2) BASO x10^3 (test code 0.05 10*3/uL 0.01-0.09 = 704-7) Lab Interpretation Abnormal (test code = 63554-5) [facility]"
--- NOTE | 2023-02-08 20:25 | EDPHYS ---
Physician Documentation [facility] Name: Arpit Sanchez Age: 38 yrs Sex: Male : 1985 Arrival Date: 02/08/2023 Time: 20:08 Bed 14 Private MD: ED Physician Chilo Ballesteros HPI: 02/08 20:27 This 38 yrs old Male presents to ER via Unassigned with complaints of Back rt Pain. 20:27 Patient presents to the ED with low back pain. Patient states that he chronically has rt low back pain but was worse over the past day. Is localized to the lumbar region in the paraspinal area. Denies radiation. Denies alcohol bladder incontinence, numbness, tingling, weakness. Denies fever, chills. Denies trauma, other acute complaints at this time. Symptoms are mild in severity, no other aggravating or alleviating factors. Patient has not taken anything for relief.. Historical: - Allergies: 20:27 PENICILLINS; kd3 - Immunization history:: Adult Immunizations up to date. - Social history:: Smoking status: Patient reports the use of cigarette tobacco products. - Family history:: not pertinent. ROS: 20:27 Constitutional: Negative for fever, chills, and weight loss, Cardiovascular: Negative rt for chest pain, palpitations, and edema, Respiratory: Negative for shortness of breath, cough, wheezing, and pleuritic chest pain, Abdomen/GI: Negative for abdominal pain, nausea, vomiting, diarrhea, and constipation, Skin: Negative for injury, rash, and discoloration, Neuro: Negative for headache, weakness, numbness, tingling, and seizure, Psych: Negative for depression, anxiety, suicide ideation, homicidal ideation, and hallucinations. 20:27 Back: Positive for pain at rest, pain with movement. Exam: 20:27 Constitutional: This is a well developed, well nourished patient who is awake, alert, rt and in no acute distress. Head/Face: Normocephalic, atraumatic. Chest/axilla: Normal chest wall appearance and motion. Nontender with no deformity. No lesions are appreciated. Cardiovascular: Regular rate and rhythm with a normal S1 and S2. No gallops, murmurs, or rubs. Normal PMI, no JVD. No pulse deficits. Respiratory: Lungs have equal breath sounds bilaterally, clear to auscultation and percussion. No rales, rhonchi or wheezes noted. No increased work of breathing, no retractions or nasal flaring. Abdomen/GI: Soft, non-tender, with normal bowel sounds. No distension or tympany. No guarding or rebound. No evidence of tenderness throughout. Skin: Warm, dry with normal turgor. Normal color with no rashes, no lesions, and no evidence of cellulitis. Neuro: Awake and alert, GCS 15, oriented to person, place, time, and situation. Cranial nerves II-XII grossly intact. Motor strength 5/5 in all extremities. Sensory grossly intact. Cerebellar exam normal. Normal gait. Psych: Awake, alert, with orientation to person, place and time. Behavior, mood, and affect are within normal limits. 20:27 Back: Mild tenderness to the paraspinal region, no midline tenderness, no step-off. Vital Signs: 20:17 BP 138 / 98; Pulse 94; Resp 16 S; Pulse Ox 98% on R/A; ha1 20:26 Pulse 96; Resp 17; Temp 98.8(O); Pulse Ox 98% ; Weight 138.35 kg; Height 6 ft. 0 in. ; kd3 20:28 BP 138 / 98; kd3 20:26 Body Mass Index 41.37 (138.35 kg, 182.88 cm) kd3 MDM: 20:18 Patient medically screened. rt 20:27 Differential diagnosis: Musculoskeletal pain, cauda equina syndrome, spinal epidural rt abscess, disc disease. Data reviewed: vital signs, nurses notes. Test considered but Not performed: MRI: Patient has no signs or symptoms or vital signs that are suggestive of a spinal epidural abscess, cauda equina syndrome, MRIs not indicate. CT: Low suspicion for aortic pathology such as aneurysm or dissection, no trauma, CT scans not indicated.. Counseling: I had a detailed discussion with the patient and/or guardian regarding: the historical points, exam findings, and any diagnostic results supporting the discharge/admit diagnosis, the need for outpatient follow up. Administered Medications: 20:33 Drug: Ketorolac IM 15 mg Route: IM; Site: right deltoid; ha1 20:35 Follow up: Response: No adverse reaction ha1 Disposition Summary: 02/08/23 20:24 Discharge Ordered Location: Home rt Problem: an acute exacerbation rt Symptoms: have improved rt Condition: Stable rt Diagnosis - Low back pain rt Followup: rt - With: Private Physician - When: 2 - 3 days - Reason: Discharge Instructions: - Discharge Summary Sheet rt - Acute Back Pain, Adult rt Forms: - Work release form ha1 - Medication Reconciliation Form rt - Thank You Letter rt - Antibiotic Education rt - Prescription Opioid Use rt Prescriptions: - Cyclobenzaprine 5 mg Oral Tablet - take 1 tablet by ORAL route 3 times per day As needed; 15 tablet; Refills: 0, rt Product Selection Permitted Signatures: Karley Hutson RN RN kd3 Alicia Washington RN RN ha1 Chilo Ballesteros MD MD rt
[2023-02-08] MEDS ORDERED: KETOROLAC 30 MG/ML INJ ONE (20:34)
--- NOTE | 2023-02-08 20:41 | ER ---
Nurse's Notes [facility] Name: Arpit Sanchez Age: 38 yrs Sex: Male : 1985 Arrival Date: 02/08/2023 Time: 20:08 Bed 14 Private MD: Diagnosis: Low back pain Presentation: 02/08 20:26 Chief complaint: Patient states: My lower back hurts. I do not think i injured it at kd3 all. I have chronic back pains but yesterday it started hurting more in the muscles of my lower back. Coronavirus screen: Vaccine status: Patient reports receiving the 2nd dose of the covid vaccine. Ebola Screen: No symptoms or risks identified at this time. Initial Sepsis Screen: Does the patient meet any 2 criteria? No. Patient's initial sepsis screen is negative. Does the patient have a suspected source of infection? No. Patient's initial sepsis screen is negative. Risk Assessment: Do you want to hurt yourself or someone else? Patient reports no desire to harm self or others. Onset of symptoms was February 08, 2023. 20:26 Method Of Arrival: Ambulatory 3 20:26 Acuity: JUSTO 4 kd3 Triage Assessment: 20:27 General: Appears uncomfortable, Behavior is calm, cooperative. Pain: Complains of pain kd3 in left low back and right low back. Musculoskeletal: Circulation, motion, and sensation intact. Historical: - Allergies: 20:27 PENICILLINS; kd3 - Immunization history:: Adult Immunizations up to date. - Social history:: Smoking status: Patient reports the use of cigarette tobacco products. - Family history:: not pertinent. Screenin:38 Abuse screen: Denies threats or abuse. Denies injuries from another. Nutritional ha1 screening: No deficits noted. Tuberculosis screening: No symptoms or risk factors identified. Assessment: 20:17 General: Appears comfortable, Behavior is calm, cooperative. Pain: Complains of pain in ha1 scrum Pain does not radiate. Pain currently is 8 out of 10 on a pain scale. Quality of pain is described as throbbing. Neuro: Level of Consciousness is awake, alert, obeys commands, Oriented to person, place, time, situation. Cardiovascular: Patient's skin is warm and dry. Respiratory: Airway is patent Respiratory effort is even, unlabored, Respiratory pattern is regular, symmetrical. GI: No signs and/or symptoms were reported involving the gastrointestinal system. : No signs and/or symptoms were reported regarding the genitourinary system. Derm: Skin is pink, warm \T\ dry. Musculoskeletal: Circulation, motion, and sensation intact. Range of motion: intact in all extremities, Reports pain in sacrum. Vital Signs: 20:17 BP 138 / 98; Pulse 94; Resp 16 S; Pulse Ox 98% on R/A; ha1 20:26 Pulse 96; Resp 17; Temp 98.8(O); Pulse Ox 98% ; Weight 138.35 kg; Height 6 ft. 0 in. ; kd3 20:28 BP 138 / 98; kd3 20:26 Body Mass Index 41.37 (138.35 kg, 182.88 cm) kd3 ED Course: 20:12 Patient arrived in ED. ja2 20:12 Chilo Ballesteros MD is Attending Physician. rt 20:17 Patient has correct armband on for positive identification. Bed in low position. Call ha1 light in reach. Side rails up X 1. 20:24 Alicia Washington RN is Primary Nurse. ha1 20:27 Triage completed. kd3 20:27 Arm band placed on right wrist. kd3 20:38 No provider procedures requiring assistance completed. Patient did not have IV access ha1 during this emergency room visit. Administered Medications: 20:33 Drug: Ketorolac IM 15 mg Route: IM; Site: right deltoid; ha1 20:35 Follow up: Response: No adverse reaction ha1 Medication: 20:39 VIS not applicable for this client. ha1 Outcome: 20:24 Discharge ordered by . rt 20:38 Discharged to home ambulatory. ha1 20:38 Condition: stable 20:38 Discharge instructions given to patient, Instructed on discharge instructions, follow up and referral plans. medication usage, Demonstrated understanding of instructions, follow-up care, medications, Prescriptions given X 1. 20:40 Patient left the ED. ha1 Signatures: Pinky Smith2 Karley Hutson RN RN kd3 Alicia Washington RN RN ha1 Chilo Ballesteros MD MD rt
[2023-02-08 20:58] VITALS: BP 138/98; O2SAT 98
[2023-02-08 20:59] VITALS: TEMP 98.8
== END 2023-02-08 20:40 | disposition home or self-care (01) ==
LOC: ER 20:08
DX: M54.50 Low back pain, unspecified (principal); Z88.0 Allergy status to penicillin
CPT/HCPCS: 96372; 99284

== ENCOUNTER 2023-07-02 23:58 | Emergency (ER) | payer SELFPAY ==
--- OUTSIDE RECORDS SUMMARY | 2023-07-03 00:19 | XMS REPORT | Continuity of Care Document ---
:1985 Author Organization [facility] t Address [address] [place] [address] Care Team Providers Name Role Phone PCP, [...] rs active active ity of problems problems [facility] Allergies, Adverse Reactions, Alerts Allergy Allergy Status Severity Reaction(s) Onset Inactive Treating Comm ents Source Name Type Date Date Clinician PENICILL DRUG Active Hives Univers IN INGREDI 6-15 ity of 00:00: [place] 00 [facility] Penicill Propensi Active Hives 0 Univer s in ty to 6-15 ity of adverse 00:00: [place] reaction 00 [facility] NO KNOWN Drug Active Univers ALLERGIE Class ity of S [facility] Social History Social Habit Start Date Stop Date Quantity Comments Source History of Cigarette Smoker Universi ty of tobacco use [facility] Exposure to 2022-04-09 2022-04-19 Not sure University of SARS-CoV-2 00:00:00 20:33:00 [facility] (event) [place] Tobacco use and 2020-10-26 2020-10-26 Smokeless tobacco Un iversity of exposure 00:00:00 00:00:00 non-user [facility] Sex Assigned At [birth year] Universit y of 00:00:00 00:00:00 [facility] Smoking Status Start Date Stop Date Source Light tobacco smoker 2020-10-26 00:00:00 Univers ity of [facility] Medications Ordered Filled Start Stop Current Ordering Indication Dosage Frequency Signature Comments Components Source Medication Medication Date Date Medication? Clinician (SIG) Name Name acetaminoph No 1000mg 1,000 mg, Univers en 04-20 Oral, ity of (TYLENOL) 01:45: 01:42 ONCE, 1 [place] tablet [place] :00 dose, On Medical 1,000 mg Mon Branch 04/19/22 at 2044, THERESE ibuprofen Yes [id number] 800mg Take 1 U nivers 800 mg 8- tablet by ity of tablet 00:00: mouth [place] 00 every 8 Medical (eight) Branch hours as needed for Temp > 38.5 C or Pain (scale 4-6). benzonatate Yes [id number] 200mg Take 1 Univers 200 mg 8- [...] Indication s: acute pain methocarbam 2021-0 Yes [id number] 750mg Take 1 Univers oL 750 mg [...] Indication s: acute pain methocarbam 2021-0 Yes [id number] 750mg Take 1 Univers oL 750 mg [...] morning for 5 days. hydrOXYzine 2020-0 Yes [id number] 1-2 tabs Univers 25 mg 2-28 Every ity of tablet 00:00: 3-6hr as [place] 00 needed for Medical itch or Branch rash, at least 3 times a day. predniSONE 2020-0 Yes [id number] 2 tabs now Univers 20 mg 2-28 and each ity of tablet 00:00: morning [place] 00 for 5 Medical doses, Branch then 1 tab each morning for 5 days. hydrOXYzine 2020-0 Yes [id number] 1-2 tabs Univers 25 mg 2-28 Every [...] 2022-04-20 01:34:00 139 mm[Hg] Univer sity [facility] Diastolic blood 2022-04-20 01:34:00 91 [facility]Hg[facility] 2022-04-20 01:34:00 96 /min [facility] Body temperature 2022-04-20 01:34:00 37.94 Laura [facility] Respiratory rate 2022-04-20 01:34:00 18 /min [facility] Body height 2022-04-20 01:34:00 182.9 cm [facility] Body weight 2022-04-20 01:34:00 136.079 kg [facility] BMI 2022-04-20 01:34:00 40.69 kg/m2 [facility] Oxygen saturation in 2022-04-20 01:34:00 96 /min University of Arterial blood by [facility] hua Pulse oximetry Branch Systolic blood 2022-02-11 02:15:00 131 mm[Hg] Univer sity of pressure [facility] Diastolic blood 2022-02-11 02:15:00 94 mm[Hg] Unive rsity of pressure [place] [facility] Heart rate 2022-02-11 02:15:00 73 /min [facility] [place] [facility] Respiratory rate 2022-02-11 02:15:00 21 /min Univ [facility] [place] [facility] Oxygen saturation in 2022-02-11 02:15:00 97 /min University of Arterial blood by [facility] Pulse oximetry Branch BMI 2022-02-10 23:23:00 40.69 kg/m2 [facility] [place] [facility] Body temperature 2022-02-10 23:23:00 36.61 Laura [facility] [place] [facility] Body height 2022-02-10 23:23:00 182.9 cm [facility] [place] [facility] Body weight 2022-02-10 23:23:00 136.079 kg [facility] [place] [facility] Systolic blood 2021-12-12 01:50:00 141 mm[Hg] Univer sity of pressure [facility] Diastolic blood 2021-12-12 01:50:00 74 mm[Hg] Unive rsity of pressure [facility] Heart rate 2021-12-12 01:50:00 100 /min [facility] [place] [facility] Body temperature 2021-12-12 01:50:00 36.06 Laura [facility] [place] [facility] Respiratory rate 2021-12-12 01:50:00 20 /min Univ [facility] [place] [facility] Body height 2021-12-12 01:50:00 182.9 cm [facility] [place] [facility] Body weight 2021-12-12 01:50:00 129.275 kg [facility] [place] [facility] BMI 2021-12-12 01:50:00 38.65 kg/m2 [facility] [place] [facility] Oxygen saturation in 2021-12-12 01:50:00 95 /min University of Arterial blood by [facility] Pulse oximetry Branch Procedures Procedure Date / Time Performed Performing Clinician Sourc e XR CHEST 1 VW 2022-04-20 01:54:[address] [facility] COVID-19 (ID NOW RAPID 2022-04-20 01:42:00 Rush Blum [facility] TESTING) Medical Branch CONSENT/REFUSAL FOR 2022-04-20 01:20:19 Doctor Unassigned, No [facility] [place] DIAGNOSIS AND Name Medical Branch TREATMENT CT ABDOMEN PELVIS WO 2022-02-11 01:47:37 Rush Blum [facility] CONTRAST Medical Branch COMP. METABOLIC PANEL 2022-02-11 00:33:00 Rush Blum [facility] ([id number]) Medical Branch CBC WITH DIFF 2022-02-11 00:33:[address] [facility] URINALYSIS 2022-02-11 00:33:[address] [facility] CONSENT/REFUSAL FOR 2022-02-10 23:29:44 Doctor Unassigned, No [facility] [place] DI[facility] AND Name Medical Branch TREATMENT NOTICE OF PRIVACY 2021-12-12 01:39:15 Doctor Unassigned, No [facility] PRACTICES Name Medical Branch CONSENT/REFUSAL FOR 2021-12-12 01:38:54 [facility] Branch TREATMENT Encounters Start End Encounter Admission Attending Care Care Encounter Source Date/Time Date/Time Type Type Clinicians Facility Department ID 2022-04-19 2022-04-19 Emergency [facility] [id number] Univers 20:36:00 21:46:00 Rush COUGHLIN [id number] darrell [facility] [id number] [facility] [id number] Medi hua 084 Branch 2022-04-19 2022-04-19 Emergency X [facility] ERT [id number] Univers 20:36:00 21:46:00 RUSH ramírez [facility] [place] [facility] 2022-02-10 2022-02-10 Emergency X [facility] ERT [id number] Univers 18:25:00 22:31[facility] 2022-02-10 2022-02-10 Emergency [facility] [id number] Univers 18:25:00 22:31:00 Rush [id number] [id number] [facility] [id number] [address] 2021-12-11 2021-12-11 Emergency X [facility] ERT [id number] Univers 20:55:00 22:13:00 [facility] 2021-12-11 2021-12-11 Emergency [facility] [id number] Univers 20:55:00 22:13:00 [id number] [facility] [id number] [facility] [id number] [address] 2021-04-06 2021-04-06 [facility] [id number] Univers 20:20:00 20:20:00 SAMUELEARLENEKaren [facility] 2020-10-26 2020-10-26 [facility] [id number] Univers 16:00:00 16:00:00 SYDNEE ity o [facility] Results Test Description Test Time Test Comments Results Result Comments Source COMP. METABOLIC PANEL (00072) 2022-02-11 01:00:36 Test Item Value Reference Range Interpretation Comme nts NA (test code = 9568143974) 139 mmol/L 135-145 K (test code = 6864147979) 4.4 mmol/L 3.5-5.0 CL (test code = 1464080920) 108 mmol/L 98-108 CO2 TOTAL (test code = 6639517342) 22 mmol/L 23-31 L AGAP (test code = 6276402927) 2-16 BUN (test code = 5209448007) 14 mg/dL 7-23 GLUCOSE (test code = 6824925811) 101 mg/dL 70-110 CREATININE (test code = 0.81 mg/dL 0.60-1.25 3934064376) TOTAL BILI (test code = 1.1 mg/dL 0.1-1.7 4997681868) CALCIUM (test code = 0240412821) 9.0 mg/dL 8.6-10.6 T PROTEIN (test code = 8023074644) 7.1 g/dL 6.3-8.2 ALBUMIN (test code = 3322681235) 4.2 g/dL 3.5-5.0 ALK PHOS (test code = 9125565343) 96 U/L 34-122 ALTv (test code = 1742-6) 78 U/L 5-50 H AST(SGOT) (test code = 7604684351) 58 U/L 13-40 H eGFR (test code = 9960745333) mL/min/1.73m2 DANIELA (test code = DANIELA) Association [...] tests). Lab Interpretation (test code = Abnormal 82993-5) [facility] WITH [id number] 00:57:55 Test Item Value Reference Range Interpretation [...] RDW-SD (test code = 41.1 fL 38.5-51.6 51739-4) RDW-CV (test code = 12.0 % 12.1-15.4 L 788-0) PLT (test code = See_Comment [Automated 777-3) message] The sy stem which generated this result transmitted reference range : 150 - 328 10*3/ ?L. The reference r clovis was not used to interpret this result as normal/abnormal . MPV (test code = 11.9 fL 9.8-13.0 88293-9) NRBC/100 WBC (test See_Comment [Automat ed code = 1976868899) message] The system which generated this result transmitted reference range : 0.0 - 10.0 /100 WBCs. The refer ence range was not u sed to interpret th is result as normal/abnormal . NRBC x10^3 (test code <0.01 See_Comment [Auto mated = 2421110222) message] The s ystem which generated this result transmitted reference range : 10*3/?L. The reference range was not used to interpret this result as normal/abnormal . GRAN MAT (NEUT) % 52.6 % (test code = 770-8) IMM GRAN % (test code 0.50 % = 4678090840) LYMPH % (test code = 34.9 % 736-9) MONO % (test code = 8.9 % 5905-5) EOS % (test code = 2.4 % 713-8) BASO % (test code = 0.7 % 706-2) GRAN MAT x10^3(ANC) 3.99 10*3/uL 1.99-6.95 (test code = 6778350964) IMM GRAN x10^3 (test 0.04 10*3/uL 0.00-0.06 code = 0292073364) LYMPH x10^3 (test code 2.64 10*3/uL 1.09-3.23 = 731-0) MONO x10^3 (test code 0.67 10*3/uL 0.36-1.02 = 742-7) EOS x10^3 (test code = 0.18 10*3/uL 0.06-0.53 711-2) BASO x10^3 (test code 0.05 10*3/uL 0.01-0.09 = 704-7) Lab Interpretation Abnormal (test code = 33656-1) [facility]"
[2023-07-03 01:58] LABS: Lymphocytes % 16.2 % (15.3-44.8); MCV 91.6 fL (80-100); MPV 9.3 fL (7.6-11.3); Platelets 180 thou/uL (152-406)
[2023-07-03] MEDS ORDERED: MORPHINE 4 MG/ML SYR ONE (02:08)
[2023-07-03] MEDS ORDERED: NA CHLORIDE 0.9% 1,000 ML ONE (02:08)
[2023-07-03 02:19] LABS: Potassium 3.8 mEq/L (3.5-5.1)
[2023-07-03] MEDS ORDERED: LIDOCAINE 2% W/EPI 1:200,000 MPF 20 ML VIAL IM ONE (02:42)
[2023-07-03] MEDS ORDERED: BUPIVACAINE 0.5% PF 10 ML VIAL ONE (02:42)
--- NOTE | 2023-07-03 03:17 | EDPHYS ---
Physician Documentation [facility] Name: Arpit Sanchez Age: 38 yrs Sex: Male : 1985 Arrival Date: 07/02/2023 Time: 23:58 Bed 19 Private MD: ED Physician Jose J Walters HPI: 07/03 01:45 This 38 yrs old Male presents to ER via Ambulatory with complaints of Abscess. cp 01:45 The patient presents with an abscess of the coccyx. Description: fluctuant, swollen. cp 01:45 Onset: The symptoms/episode began/occurred at an unknown time. and became worse today. cp 01:45 Associated signs and symptoms: Pertinent positives: chills, Pertinent negatives: fever. cp Severity of symptoms: in the emergency department the symptoms are unchanged, despite home interventions. Historical: - Allergies: 01:30 PENICILLINS; rv - Immunization history:: Adult Immunizations up to date. - Social history:: Smoking status: Patient denies any tobacco usage or history of. ROS: 01:50 Skin: Positive for of the coccyx, cp 01:50 Constitutional: Positive for chills, Negative for fever, cp Exam: 01:55 Constitutional: The patient appears in no acute distress, alert, awake, non-toxic, well cp developed, well nourished, obese, uncomfortable, 01:55 Head/Face: Normocephalic, atraumatic. cp 01:55 Chest/axilla: Inspection: normal, 01:55 Cardiovascular: Rate: tachycardic, 01:55 Respiratory: the patient does not display signs of respiratory distress, Respirations: normal, no use of accessory muscles, no retractions, labored breathing, is not present, Breath sounds: are clear throughout, no decreased breath sounds, 01:55 Abdomen/GI: Inspection: obese 01:55 Skin: abscess, of the coccyx, with induration, with surrounding cellulitis, that is mild, 01:55 Neuro: Orientation: to person, place \T\ time. Mentation: is normal, Motor: moves all fours, strength is normal, Gait: is steady, Vital Signs: 01:29 BP 114 / 90; Pulse 100; Resp 19; Temp 97.8; Pulse Ox 97% ; Weight 158.3 kg; Height 6 rv ft. 0 in. ; 04:05 BP 120 / 86; Pulse 81; Resp 17; Temp 98; Pulse Ox 99% on R/A; rv 01:29 Body Mass Index 47.33 (158.30 kg, 182.88 cm) rv Procedures: 02:52 I \T\ D: Incision and drainage was performed for an abscess of the pilonidal cyst Prepped with Betadine, Anesthetized with ml's 2% Lidocaine with epinephrine. 6 ml's 2% Lidocaine with epinephrine. Incised with #11 blade. Drained moderate amount purulent fluid. bloody fluid. Packed with iodoform gauze, Dressing: sterile 4x4 gauze, the patient tolerated the procedure well. MDM: 01:15 Patient medically screened. cp 02:00 Differential diagnosis: abscess, cellulitis, sepsis. cp 03:16 Data reviewed: vital signs, nurses notes, lab test result(s), and as a result, I will cp discharge patient. 03:16 I considered the following discharge prescriptions or medication management in the emergency department Medications were administered in the Emergency Department. See MAR. Counseling: I had a detailed discussion with the patient and/or guardian regarding the historical points, exam findings, and any diagnostic results supporting the discharge/admit diagnosis, lab results, the need for outpatient follow up, a general surgeon, to return to the emergency department if symptoms worsen or persist or if there are any questions or concerns that arise at home. Response to treatment: the patient's symptoms have markedly improved after treatment, and as a result, I will discharge patient. 07/03 01:41 Order name: CBC with Diff; Complete Time: 02:23 07/03 01:41 Order name: BMP; Complete Time: 02:23 07/03 01:41 Order name: Lactate w/ 2H reflex if indic.; Complete Time: 02:23 07/03 01:41 Order name: IV; Complete Time: :58 07/03 01:41 Order name: I\T\D Setup; Complete Time: : 07/03 02:53 Order name: Dressing - Wound; Complete Time: 03:58 Administered Medications: :58 Drug: morphine IVP or IV 4 mg IVP once over 4 mins Route: IVP; Infused Over: 4 mins; rv Site: right forearm; 04:04 Follow up: Response: No adverse reaction rv 01:58 Drug: NS 0.9% IV 1000 ml IV at 1 bolus Per protocol; 1000 mL bolus Route: IV; Rate: 1 rv bolus; Site: right forearm; 04:04 Follow up: IV Status: Completed infusion; IV Intake: 1000ml rv 03:36 Drug: Clindamycin IVPB 900 mg IVPB once over 30 mins; (mix in 50 mL) Route: IVPB; rv Infused Over: 30 mins; Site: right forearm; 04:03 Follow up: Response: No adverse reaction; IV Status: Completed infusion; IV Intake: 50mlrv 04:03 Drug: Trimethoprim-Sulfamethoxazole PO (160 mg-800 mg (DS) 2 tabs PO once Route: PO; rv 04:03 Follow up: Response: Medication administered at discharge. rv 04:04 Drug: Lidocaine-Epinephrine Infiltration -1%: (1:100,000) 10 ml 20 ml Infiltration rv once; to bedside {Note: administered by Kelby Page.} Volume: 20 ml; Route: Infiltration; 04:04 Drug: Bupivacaine Infiltration (0.5 %) 10 ml 10 ml Infiltration once {Note: rv administered by Kelby Page.} Volume: 10 ml; Route: Infiltration; Disposition: 07/04 01:08 Co-signature as Attending Physician, Jose J Walters MD I agree with the assessment sp4 and plan of care. I reviewed the patient's care provided by the Advanced Practice Provider and agree with the diagnosis and treatment plan. Disposition Summary: 07/03/23 03:17 Discharge Ordered Notes: Location: Home cp Problem: new cp Symptoms: have improved cp Condition: Stable cp Diagnosis - Pilonidal cyst with abscess cp Followup: cp - With: Robbin Avila MD - When: 48 Hours - Reason: Wound Recheck Discharge Instructions: - Discharge Summary Sheet cp - Incision and Drainage cp - Pilonidal Cyst cp Forms: - Medication Reconciliation Form cp - Thank You Letter cp - Antibiotic Education cp - Prescription Opioid Use cp - Patient Portal Instructions cp - Leadership Thank You Letter cp Prescriptions: - Clindamycin HCl 300 mg Oral Capsule - take 1 capsule ORAL route every 6 hours for 10 days; 40 capsule; Refills: 0, cp Product Selection Permitted - Ibuprofen 800 mg Oral Tablet - take 1 tablet ORAL route every 8 hours As needed take with food; 30 tablet; cp Refills: 0, Product Selection Permitted - Bactrim DS 800-160 mg Oral Tablet - take 1 tablet ORAL route every 12 hours for 10 days; 20 tablet; Refills: 0, cp Product Selection Permitted Signatures: Dispatcher [employer] Kelby Chen PA PA cp Vicente, Ronaldo, RN RN rv Jose J Walters MD MD sp4
--- NOTE | 2023-07-03 03:17 | ER ---
Nurse's Notes [facility] Name: Arpit Sanchez Age: 38 yrs Sex: Male : 1985 Arrival Date: 07/02/2023 Time: 23:58 Bed 19 Private MD: Diagnosis: Pilonidal cyst with abscess Presentation: 07/03 01:29 Chief complaint: Patient states: chills started around 1900 today, abscess on the rv buttocks, middle, complaining of pain around the area. Coronavirus screen: At this time, the client does not indicate any symptoms associated with coronavirus-19. Ebola Screen: No symptoms or risks identified at this time. Initial Sepsis Screen: Does the patient meet any 2 criteria? No. Patient's initial sepsis screen is negative. Does the patient have a suspected source of infection? No. Patient's initial sepsis screen is negative. Risk Assessment: Do you want to hurt yourself or someone else? Patient reports no desire to harm self or others. Onset of symptoms was July 03, 2023. 01:29 Method Of Arrival: Ambulatory rv 01:29 Acuity: JUSTO 4 rv 01:48 Acuity: JUSTO 3 rv Triage Assessment: 01:30 General: Appears uncomfortable, Behavior is calm, cooperative. Pain: Complains of pain rv in buttocks. Neuro: Level of Consciousness is awake, alert, obeys commands, Oriented to person, place, time, situation. Cardiovascular: Capillary refill < 3 seconds Patient's skin is warm and dry. Respiratory: Airway is patent Respiratory effort is even, unlabored. Derm: Abscess located on coccyx. Historical: - Allergies: : PENICILLINS; rv - Immunization history:: Adult Immunizations up to date. - Social history:: Smoking status: Patient denies any tobacco usage or history of. Screenin:31 [facility] ED Fall Risk Assessment (Adult) History of falling in the last 3 months, rv including since admission No falls in past 3 months (0 pts) Score/Fall Risk Level 0 - 2 = Low Risk Oriented to surroundings, Maintained a safe environment, Educated pt \T\ family on fall prevention, incl call for assistance when getting out of bed, Assessed \T\ reinforced patient's understanding of fall precautions, Provided non-skid footwear, Hourly rounding (assess needs \T\ fall precautionary measures) done, Used ambulatory aids as needed (educated on \T\ assisted with), Used gait belt as appropriate. Abuse screen: Denies threats or abuse. Denies injuries from another. Nutritional screening: No deficits noted. Tuberculosis screening: No symptoms or risk factors identified. Assessment: 01:31 Reassessment: see triage notes. rv Vital Signs: 01:29 BP 114 / 90; Pulse 100; Resp 19; Temp 97.8; Pulse Ox 97% ; Weight 158.3 kg; Height 6 rv ft. 0 in. ; 04:05 BP 120 / 86; Pulse 81; Resp 17; Temp 98; Pulse Ox 99% on R/A; rv 01:29 Body Mass Index 47.33 (158.30 kg, 182.88 cm) rv ED Course: 00:00 Patient arrived in ED. jj6 00:45 Kelby Louie PA is PHCP. cp 00:45 Jose J Walters MD is Attending Physician. cp 01:23 Margarito Poe, KAILYN is Primary Nurse. rv 01:30 Triage completed. rv 01:31 Arm band placed on right wrist. rv 01:31 Patient has correct armband on for positive identification. Client placed on continuous rv cardiac and pulse oximetry monitoring. NIBP monitoring applied. 01:40 Inserted saline lock: 20 gauge in right forearm, using aseptic technique. Blood rv collected. 02:08 Assist provider with I \T\ D: of an abscess on buttocks Set up I\T\D tray. Performed by barron SMITH Wound packed. iodoform gauze, Dressing with tape Patient tolerated well. 03:16 Robbin Avila MD is Referral Physician. cp 04:05 Provided Education on: wound care. rv 04:05 IV discontinued, intact, bleeding controlled, No redness/swelling at site. Pressure rv dressing applied. Administered Medications: 01:58 Drug: morphine IVP or IV 4 mg IVP once over 4 mins Route: IVP; Infused Over: 4 mins; rv Site: right forearm; 04:04 Follow up: Response: No adverse reaction rv 01:58 Drug: NS 0.9% IV 1000 ml IV at 1 bolus Per protocol; 1000 mL bolus Route: IV; Rate: 1 rv bolus; Site: right forearm; 04:04 Follow up: IV Status: Completed infusion; IV Intake: 1000ml rv 03:36 Drug: Clindamycin IVPB 900 mg IVPB once over 30 mins; (mix in 50 mL) Route: IVPB; rv Infused Over: 30 mins; Site: right forearm; 04:03 Follow up: Response: No adverse reaction; IV Status: Completed infusion; IV Intake: 50mlrv 04:03 Drug: Trimethoprim-Sulfamethoxazole PO (160 mg-800 mg (DS) 2 tabs PO once Route: PO; rv 04:03 Follow up: Response: Medication administered at discharge. rv 04:04 Drug: Lidocaine-Epinephrine Infiltration -1%: (1:100,000) 10 ml 20 ml Infiltration rv once; to bedside {Note: administered by Kelby Louie.} Volume: 20 ml; Route: Infiltration; 04:04 Drug: Bupivacaine Infiltration (0.5 %) 10 ml 10 ml Infiltration once {Note: rv administered by Kelby Louie.} Volume: 10 ml; Route: Infiltration; Medication: 01:31 VIS not applicable for this client. rv Intake: 04:03 IV: 50ml; Total: 50ml. rv 04:04 IV: 1000ml; Total: 1050ml. rv Outcome: 03:17 Discharge ordered by MD. cp 04:05 Discharged to home ambulatory, rv 04:05 Condition: improved 04:05 Discharge instructions given to patient, Instructed on discharge instructions, follow up and referral plans. medication usage, Demonstrated understanding of instructions, follow-up care, medications, Prescriptions given X 3, 04:05 Patient left the ED. rv Signatures: Kelby Louie PA PA cp Margarito Poe RN RN rv Tiarra Cerna jj6 Corrections: (The following items were deleted from the chart) 02:08 01:31 Patient did not have IV access during this emergency room visit. rv rv
[2023-07-03] MEDS ORDERED: CLINDAMYCIN 900MG/D5W 900 MG/50 ML IVPB IV ONE (03:44)
[2023-07-03] MEDS ORDERED: SMZ./TMP. 800/160 MG TABLET ONE (04:12)
[2023-07-03 05:05] VITALS: BP 114/90; TEMP 97.8; O2SAT 97
== END 2023-07-03 04:05 | disposition home or self-care (01) ==
LOC: ER 23:58
PROC: 0H98XZZ Drainage of Buttock Skin, External Approach (ICD-10-PCS; principal; 2023-07-03)
DX: L05.01 Pilonidal cyst with abscess (principal)
CPT/HCPCS: 10060; 36415; 80048; 83605; 85025; 96361; 96365; 96375; 99285; J7030

== ENCOUNTER 2023-08-03 14:12 | Emergency (ER) | payer SELFPAY ==
--- OUTSIDE RECORDS SUMMARY | 2023-08-03 14:15 | XMS REPORT | Continuity of Care Document ---
Author Name Unknown Address [address] [place] [address] [facility] Address [address] [place] [address] Care Team Providers Care Cook Apprentice Name Role Phone PCP, PATIENT DOES NOT HAVE A Primary Care Physic charu Unavailable Josefina Blum MD Attending Clinician [phone] JOSEFINA BLUM Attending Clinician Unavailable SASHA CARRANZA Attending Clinician UnavailSYDNEE Ennis Attending Clinician UnavailJOSEFINA Proctor Admitting Clinician Unavailable Payers Payer Name Policy Type Policy Number Effective Date Expirati on Date Source Problems Condition Name Condition Details Condition Category Status Onset Date Resolution Date Last Treatment Date Treating Clinician Comments Source No known active problems No known active problems Disease [facility] Allergies, Adverse Reactions, Alerts Allergy Name Allergy Type Status Severity Reaction(s) Onset Date Inactive Date Treating Clinician Comments Source PENICILL IN DRUG INGREDI Active Hives 02-10 00:00: 00 [facility] Penicill in Propensi ty to adverse reaction s Active Hives 02-10 00:00: 00 [facility] NO KNOWN ALLERGIE S Drug Class Active [facility] Social History Social Habit Start Date Stop Date Quantity Comments Source History of tobacco use Cigarette Smoker [facility] Exposure to SARS-CoV-2 (event) 2022-04-09 00:00:00 2022-04-19 20:33:00 Not sure [facility] Tobacco use and exposure 2020-10-26 00:00:00 2020-10-26 00:00:00 Smokeless tobacco non-user [facility] Sex Assigned At 1985 00:00:00 1985 00:00:00 [facility] Smoking Status Start Date Stop Date Source Light tobacco smoker 2020-10-26 00:00:00 [facility] Medications Ordered Medication Name Filled Medication Name Start Date Stop Date Current Medication? Ordering Clinician Indication Dosage Frequency Signature (SIG) Comments Components Source acetaminoph en (TYLENOL) tablet 1,000 mg 04-20 01:45: 00 04-20 01:42 :00 No 1000mg 1,000 mg, Oral, ONCE, 1 dose, On Tue04/19/22 at 2044, THERESE [facility] ibuprofen 800 mg tablet 04-19 00:00: 00 Yes [id number] 800mg Take 1 tablet by mouth every 8 (eight) hours as needed for Temp > 38.5 C or Pain (scale 4-6). [facility] benzonatate 200 mg capsule 04-19 00:00: 00 Yes [id number] 200mg Take 1 capsule by mouth 3 (three) times daily as needed for Cough. [facility] ondansetron (ZOFRAN (PF)) injection 4 mg 02-11 01:45: 00 02-11 00:52 :00 No 4mg 4 mg, Slow IV Push, ONCE, 1 dose, On Tue02/10/22 at 2045, THERESE [facility] morpHINE (4 mg/mL) injection 4 mg 02-11 01:45: 00 02-11 00:54 :00 No 4mg 4 mg, Slow IV Push, ONCE, 1 dose, On Tue02/10/22 at 2045, STAT [facility] traMADoL (ULTRAM) 50 mg tablet 02-10 00:00: 00 Yes [id number] 50mg Take 1 tablet by mouth every 6 (six) hours as needed for Pain (scale 7-10). Indication s: acute pain [facility] methocarbam oL 750 mg tablet 0 15 00:00: 00 Yes [id number] 750mg Take 1 tablet by mouth every 6 (six) hours as needed for Pain (scale 7-10) (MUSCLE SPASM). [facility] traMADoL (ULTRAM) 50 mg tablet 15 00:00: 00 Yes [id number] 50mg Take 1 tablet by mouth every 6 (six) hours as needed for Pain (scale 7-10). Indication s: acute pain [facility] methocarbam oL 750 mg tablet 15 00:00: 00 Yes [id number] 750mg Take 1 tablet by mouth every 6 (six) hours as needed for Pain (scale 7-10) (MUSCLE SPASM). [facility] predniSONE 20 mg tablet 0 28 00:00: 00 Yes [id number] 2 tabs now and each morning for 5 doses, then 1 tab each morning for 5 days. [facility] hydrOXYzine 25 mg tablet 0 28 00:00: 00 Yes [id number] 1-2 tabs Every 3-6hr as needed for itch or rash, at least 3 times a day. [facility] predniSONE 20 mg tablet 2020-0 -28 00:00: 00 Yes [id number] 2 tabs now and each morning for 5 doses, then 1 tab each morning for 5 days. [facility] hydrOXYzine 25 mg tablet 2020-0 -28 00:00: 00 Yes [id number] 1-2 tabs Every 3-6hr as needed for itch or rash, at least 3 times a day. [facility] predniSONE 20 mg tablet 2020-0 -28 00:00: 00 Yes [id number] 2 tabs now and each morning for 5 doses, then 1 tab each morning for 5 days. [facility] hydrOXYzine 25 mg tablet 2020-0 2-28 00:00: 00 Yes [id number] 1-2 tabs Every 3-6hr as needed for itch or rash, at least 3 times a day. [facility] traMADOL 50 mg tablet 11-06 00:00: 00 Yes 50mg Take 1 tablet by mouth every 6 (six) hours as needed for Pain (scale 4-6). [facility] etodolac 500 mg tablet 11-06 00:00: 00 Yes 500mg Take 1 tablet by mouth 2 (two) times daily. [facility] traMADOL 50 mg tablet 11-06 00:00: 00 Yes 50mg Take 1 tablet by mouth every 6 (six) hours as needed for Pain (scale 4-6). [facility] etodolac 500 mg tablet 11-06 00:00: 00 Yes 500mg Take 1 tablet by mouth 2 (two) times daily. [facility] traMADOL 50 mg tablet 11-06 00:00: 00 Yes 50mg Take 1 tablet by mouth every 6 (six) hours as needed for Pain (scale 4-6). [facility] etodolac 500 mg tablet 11-06 00:00: 00 Yes 500mg Take 1 tablet by mouth 2 (two) times daily. [facility] Vital Signs Vital Name Observation Time Observation Value Comments S ource Systolic blood pressure 2022-04-20 01:34:00 139 mm[Hg] [facility] Diastolic blood pressure 2022-04-20 01:34:00 91 mm[Hg] [facility] Heart rate 2022-04-20 01:34:00 96 /min [facility] Body temperature 2022-04-20 01:34:00 37.94 [place] [facility] Respiratory rate 2022-04-20 01:34:00 18 /min [facility] Body height 2022-04-20 01:34:00 182.9 cm [facility] Body weight 2022-04-20 01:34:00 136.079 kg [facility] BMI 2022-04-20 01:34:00 40.69 kg/m2 [facility] Oxygen saturation in Arterial blood by Pulse oximetry 2022-04-20 01:34:00 96 /min [facility] Systolic blood pressure 2022-02-11 02:15:00 131 mm[Hg] [facility] Diastolic blood pressure 2022-02-11 02:15:00 94 mm[Hg] [facility] Heart rate 2022-02-11 02:15:00 73 /min [facility] Respiratory rate 2022-02-11 02:15:00 21 /min [facility] Oxygen saturation in Arterial blood by Pulse oximetry 2022-02-11 02:15:00 97 /min [facility] BMI 2022-02-10 23:23:00 40.69 kg/m2 [facility] Body temperature 2022-02-10 23:23:00 36.61 [place] [facility] Body height 2022-02-10 23:23:00 182.9 cm [facility] Body weight 2022-02-10 23:23:00 136.079 kg [facility] Systolic blood pressure 2021-12-12 01:50:00 141 mm[Hg] [facility] Diastolic blood pressure 2021-12-12 01:50:00 74 mm[Hg] [facility] Heart rate 2021-12-12 01:50:00 100 /min [facility] Body temperature 2021-12-12 01:50:00 36.06 [place] [facility] Respiratory rate 2021-12-12 01:50:00 20 /min [facility] Body height 2021-12-12 01:50:00 182.9 cm [facility] Body weight 2021-12-12 01:50:00 129.275 kg [facility] BMI 2021-12-12 01:50:00 38.65 kg/m2 [facility] Oxygen saturation in Arterial blood by Pulse oximetry 2021-12-12 01:50:00 95 /min [facility] Procedures Procedure Date / Time Performed Performing Clinicia n Source XR CHEST 1 VW 2022-04-20 01:54:23 [facility] NOW RAPID TEST[facility]) 2022-04-20 01:42:00 Josefina Bulm [facility] CONSENT/REFUSAL FOR DIAGNOSIS AND TREATMENT 2022-04-20 01:20:19 Doctor Unassigned, [place] [facility] CT ABDOMEN PELVIS WO CONTRAST 2022-02-11 01:47:37 Josefina Blum [facility] COMP. METABOLIC PANEL ([id number]) 2022-02-11 00:33:00 Josefina Blum [facility] CBC WITH DIFF 2022-02-11 00:33:00 Josefina Blum [facility] URINALYSIS 2022-02-11 00:33:00 Josefina Blum [facility] CONSENT/REFUSAL FOR DIAGNOSIS AND TREATMENT 2022-02-10 23:29:44 Doctor Unassigned, [place] [facility] NOTICE OF PRIVACY PRACTICES 2021-12-12 01:39:15 Doctor Unassigned, [place] [facility] CONSENT/REFUSAL FOR DIAGNOSIS AND TREATMENT 2021-12-12 01:38:54 Doctor Unassigned, [place] [facility] Encounters Start Date/Time End Date/Time Encounter Type Admission Type Attending [facility] Care Facility Care Department Encounter ID Source 2022-04-19 20:36:00 2022-04-19 21:46:00 Emergency Josefina Blum [facility] [id number] [facility] 2022-04-19 20:36:00 2022-04-19 21:46:00 Emergency X JOSEFINA BLUM [facility] [id number] [facility] 2022-02-10 18:25:00 2022-02-10 22:31:00 Emergency X JOSEFINA BLUM [facility] ERT [id number] [facility] 2022-02-10 18:25:00 2022-02-10 22:31:00 Emergency Josefina Blmu [facility] [id number] [facility] 2021-12-11 20:55:00 2021-12-11 22:13:00 Emergency X JOSEFINA BLUM [facility] E[facility] [id number] [facility] 2021-12-11 20:55:00 2021-12-11 22:13:00 Emergency Josefina Blum [facility] [id number] [facility] 2021-04-06 20:20:00 2021-04-06 20:20:00 Outpatient R SASHA CARRANZA [facility] [id number] [facility] 2020-10-26 16:00:00 2020-10-26 16:00:00 Outpatient R SYDNEE HANSEN [facility] [id number] [facility] Results Test Description Test Time Test Comments Results Result Co mments Source [facility] WITH [id number] 00:57:55* Test Item Value Reference Range Interpretation Comme nts WBC (test code = 6690-2) See_Comment [Automated [employer]] The system which generated this result transmitted reference range: 4.20 - 10.70 10*3/?L. The reference range was not used to interpret this result as normal/abnormal. RBC (test code = 789-8) See_Comment [Automated [employer]] The system which generated this result transmitted reference range: 4.26 - 5.52 10*6/?L. The reference range was not used to interpret this result as normal/abnormal. HGB (test code = 718-7) 17.3 g/dL 12.2-16.4 H HCT (test code = 4544-3) 49.6 % 38.4-49.3 H MCV (test code = 787-2) 92.7 fL 81.7-95.6 MCH (test code = 785-6) 32.3 pg 26.1-32.7 MCHC (test code = 786-4) 34.9 g/dL 31.2-35.0 RDW-SD (test code = 38107-3) 41.1 fL 38.5-51.6 RDW-CV (test code = 788-0) 12.0 % 12.1-15.4 L PLT (test code = 777-3) See_Comment [Automated messa ge] The system which generated this result transmitted reference range: 150 - 328 10*3/?L. The reference range was not used to interpret this result as normal/abnormal. MPV (test code = 04348-3) 11.9 fL 9.8-13.0 NRBC/100 WBC (test code = 3017372080) See_Comment [Automated [employer] ssage] The system which generated this result transmitted reference range: 0.0 - 10.0 /100 WBCs. The reference range was not used to interpret this result as normal/abnormal. NRBC x10^3 (test code = 2753336306) <0.01 See_Comment [Automated messa ge] The system which generated this result transmitted reference range: 10*3/?L. The reference range was not used to interpret this result as normal/abnormal. GRAN MAT (NEUT) % (test code = 770-8) 52.6 % IMM GRAN % (test code = 6890149007) 0.50 % LYMPH % (test code = 736-9) 34.9 % MONO % (test code = 5905-5) 8.9 % EOS % (test code = 713-8) 2.4 % BASO % (test code = 706-2) 0.7 % GRAN MAT x10^3(ANC) (test code = 8803938529) 3.99 10*3/uL 1.99-6.95 IMM GRAN x10^3 (test code = 4045423819) 0.04 10*3/uL 0.00-0.06 LYMPH x10^3 (test code = 731-0) 2.64 10*3/uL 1.09-3.23 MONO x10^3 (test code = 742-7) 0.67 10*3/uL 0.36-1.02 EOS x10^3 (test code = 711-2) 0.18 10*3/uL 0.06-0.53 BASO x10^3 (test code = 704-7) 0.05 10*3/uL 0.01-0.09 Lab Interpretation (test code = 42638-1) Abnormal [facility]
[2023-08-03] MEDS ORDERED: IBUPROFEN 400 MG TAB ONE (14:38)
--- NOTE | 2023-08-03 15:16 | ER ---
Nurse's Notes [facility] Name: Arpit Sanchez Age: 38 yrs Sex: Male : 1985 Arrival Date: 08/03/2023 Time: 14:12 Bed 9 Private MD: Diagnosis: Influenza due to identified novel influenza A virus Presentation: 08/03 14:17 Chief complaint: Patient states: COUGH AND FEVER STARTED YESTERDAY WITH COUGH AND TODAY db WITH FEVER. Coronavirus screen: Vaccine status: Patient reports receiving the 2nd dose of the covid vaccine. Client denies travel out of the [place] in the last 14 days. At this time, the client does not indicate any symptoms associated with coronavirus-19. Ebola Screen: Patient negative for fever greater than or equal to 101.5 degrees Fahrenheit, and additional compatible Ebola Virus Disease symptoms Patient denies exposure to infectious person. Patient denies travel to an Ebola-affected area in the 21 days before illness onset. Initial Sepsis Screen: Does the patient meet any 2 criteria? Temp <36.0*C (96.8*F)) or > 38.3*C (100.9*F). HR > 90 bpm. Yes Does the patient have a suspected source of infection? No. Patient's initial sepsis screen is negative. Risk Assessment: Do you want to hurt yourself or someone else? Patient reports no desire to harm self or others. Onset of symptoms was August 03, 2023. 14:17 Method Of Arrival: Ambulatory db 14:17 Acuity: JUSTO 3 db Triage Assessment: 14:19 General: Appears in no apparent distress. uncomfortable, Behavior is calm, cooperative. db Pain: Complains of pain in mouth. EENT: Reports SORE THROAT. Neuro: Level of Consciousness is awake, alert, obeys commands, Oriented to person, place, time, situation. Respiratory: Airway is patent Respiratory effort is even, unlabored, Respiratory pattern is regular, symmetrical. Historical: - Allergies: 14:19 PENICILLINS; db - Home Meds: 14:19 None [Active]; db - PMHx: 14:19 None; db - PSHx: 14:19 None; db - Immunization history:: Adult Immunizations unknown. - Social history:: Smoking status: Patient reports the use of cigarette tobacco products, smokes one-half pack cigarettes per day. Screenin:51 [facility] ED Fall Risk Assessment (Adult) History of falling in the last 3 months, cp4 including since admission No falls in past 3 months (0 pts) Confusion or Disorientation No (0 pts) Intoxicated or Sedated No (0 pts) Impaired Gait No (0 pts) Mobility Assist Device Used No (0 pt) Altered Elimination No (0 pt) Score/Fall Risk Level 0 - 2 = Low Risk Oriented to surroundings, Maintained a safe environment, Educated pt \T\ family on fall prevention, incl call for assistance when getting out of bed, Hourly rounding (assess needs \T\ fall precautionary measures) done. Abuse screen: Denies threats or abuse. Nutritional screening: No deficits noted. Tuberculosis screening: No symptoms or risk factors identified. Assessment: 14:51 General: Appears in no apparent distress. Behavior is calm, cooperative, appropriate cp4 for age. Vital Signs: 14:17 BP 143 / 97; Pulse 138; Resp 20; Temp 102.8(TE); Pulse Ox 98% ; Weight 149.69 kg; db Height 6 ft. 0 in. ; 15:38 BP 100 / 68; Pulse 111; Resp 18; Temp 98.6; Pulse Ox 96% ; cp4 14:17 Body Mass Index 44.76 (149.69 kg, 182.88 cm) db ED Course: 14:14 Patient arrived in ED. rg4 14:15 Huyen Sims FNP-C [facility]. kb 14:15 Chilo Ballesteros MD is Attending Physician. kb 14:17 Elly Martinez, RN is Primary Nurse. db 14:19 Triage completed. db 14:20 Arm band placed on Patient placed in an exam room. db 14:30 COVID-19 SARS RT PCR Sent. cp4 14:30 Flu Sent. cp4 14:51 Jeannette Goncalves is Primary Nurse. cp4 14:51 Bed in low position. Call light in reach. Side rails up X 1. cp4 14:51 No provider procedures requiring assistance completed. Patient did not have IV access cp4 during this emergency room visit. 15:39 Provided Education on: influenza. cp4 Administered Medications: 14:30 Drug: Ibuprofen PO 800 mg PO once Route: PO; cp4 15:30 Follow up: Response: No adverse reaction cp4 15:37 Drug: Ondansetron PO 4 mg PO once Route: PO; cp4 15:41 Follow up: Response: No adverse reaction cp4 15:37 Drug: Oseltamivir PO 75 mg PO once Route: PO; cp4 15:41 Follow up: Response: No adverse reaction cp4 Medication: 14:51 VIS not applicable for this client. cp4 Outcome: 15:15 Discharge ordered by . kb 15:39 Discharged to home ambulatory, cp4 15:39 Condition: stable 15:39 Discharge instructions given to patient, Instructed on discharge instructions, follow up and referral plans. medication usage, Demonstrated understanding of instructions, follow-up care, medications, Prescriptions given X 3, 15:42 Patient left the ED. cp4 Signatures: Huyen Sims, DENISE SEGURA-Melonie Bolanos rg4 Elly Martinez, RN RN Jeannette Harvey cp4
--- NOTE | 2023-08-03 15:16 | EDPHYS ---
Physician Documentation [facility] Name: Arpit Sanchez Age: 38 yrs Sex: Male : 1985 Arrival Date: 08/03/2023 Time: 14:12 Bed 9 Private MD: ED Physician Chilo Ballesteros HPI: 08/03 14:30 This 38 yrs old Male presents to ER via Ambulatory with complaints of Fever, kb Cough. 14:30 Patient is a 38-year-old male with no medical history who presents for cough that kb started yesterday and fever that started today. Denies any other symptoms.. Historical: - Allergies: 14:19 PENICILLINS; db - Home Meds: 14:19 None [Active]; db - PMHx: 14:19 None; db - PSHx: 14:19 None; db - Immunization history:: Adult Immunizations unknown. - Social history:: Smoking status: Patient reports the use of cigarette tobacco products, smokes one-half pack cigarettes per day. ROS: 14:30 Abdomen/GI: Negative for abdominal pain, nausea, vomiting, diarrhea, and constipation, kb 14:30 Constitutional: Positive for fever, 14:30 Respiratory: Positive for cough, 14:30 All other systems are negative, Exam: 14:30 Constitutional: This is a well developed, well nourished patient who is awake, alert, kb and in no acute distress. Head/Face: Normocephalic, atraumatic. ENT: Moist Mucous membranes Cardiovascular: Regular rate Respiratory: Respirations even and unlabored. No increased work of breathing. Talking in full sentences Skin: Warm, dry with normal turgor. Normal color. MS/ Extremity: Pulses equal, no cyanosis. Neurovascular intact. Full, normal range of motion. Neuro: Awake and alert, GCS 15, oriented to person, place, time, and situation. Moves all extremities. Normal gait. Vital Signs: 14:17 BP 143 / 97; Pulse 138; Resp 20; Temp 102.8(TE); Pulse Ox 98% ; Weight 149.69 kg; db Height 6 ft. 0 in. ; 15:38 BP 100 / 68; Pulse 111; Resp 18; Temp 98.6; Pulse Ox 96% ; cp4 14:17 Body Mass Index 44.76 (149.69 kg, 182.88 cm) db MDM: 14:15 Patient medically screened. kb 14:30 Differential diagnosis: Flu, COVID, URI, pneumonia. Data reviewed: vital signs, nurses kb notes. Test considered but Not performed: X-ray: Chest x-ray considered but oxygen saturation 98% on the room air, lungs clear bilaterally, respirations even and unlabored. 15:15 I considered the following discharge prescriptions or medication management in the emergency department I discussed and recommended Over The Counter medications, Antibiotics: At this time antibiotics are not recommended. Counseling: I had a detailed discussion with the patient and/or guardian regarding the historical points, exam findings, and any diagnostic results supporting the discharge/admit diagnosis, lab results, the need for outpatient follow up, a family practitioner, to return to the emergency department if symptoms worsen or persist or if there are any questions or concerns that arise at home. 08/03 14:18 Order name: Flu; Complete Time: 15:13 kb 08/03 14:18 Order name: COVID-19 SARS RT PCR; Complete Time: 15:05 kb 08/03 15:13 Order name: Vital Signs; Complete Time: 15:42 kb Administered Medications: 14:30 Drug: Ibuprofen PO 800 mg PO once Route: PO; cp4 15:30 Follow up: Response: No adverse reaction cp4 15:37 Drug: Ondansetron PO 4 mg PO once Route: PO; cp4 15:41 Follow up: Response: No adverse reaction cp4 15:37 Drug: Oseltamivir PO 75 mg PO once Route: PO; cp4 15:41 Follow up: Response: No adverse reaction cp4 Disposition: 17:22 Co-signature as Attending Physician, Chilo Ballesteros MD I reviewed the patient's care rt provided by the Advanced Practice Provider and agree with the diagnosis and treatment plan. Disposition Summary: 08/03/23 15:15 Discharge Ordered Notes: Location: Home kb Condition: Stable kb Diagnosis - Influenza due to identified novel influenza A virus kb Followup: kb - With: Emergency Department - When: As needed - Reason: Worsening of condition Followup: kb - With: Private Physician - When: 2 - 3 days - Reason: Recheck today's complaints, Continuance of care, Re-evaluation by your physician Discharge Instructions: - Discharge Summary Sheet kb - Influenza, Adult, [id number] kb Forms: - Work release form kb - Medication Reconciliation Form kb - Thank You Letter kb - Antibiotic Education kb - Prescription Opioid Use kb - Patient Portal Instructions kb - Leadership Thank You Letter kb Prescriptions: - Zofran 4 mg Oral tablet - take 1 tablet ORAL route every 6 hours As needed; 10 tablet; Refills: 0, kb Product Selection Permitted - Tessalon Perles 100 mg Oral Capsule - take 1 capsule ORAL route every 8 hours As needed; 15 capsule; Refills: 0, kb Product Selection Permitted - Tamiflu 75 mg Oral capsule - take 1 tablet ORAL route every 12 hours for 5 days; 10 tablet; Refills: 0, kb Product Selection Permitted Signatures: Dispatcher [employer] EDMS Huyen Sims, ZENYC Elly Schneider RN RN db Chilo Ballesteros MD MD rt Jeannette Goncalves cp4
[2023-08-03] MEDS ORDERED: OSELTAMIVIR 75 MG CAP PO ONE (15:46)
[2023-08-03] MEDS ORDERED: ONDANSETRON 4 MG (ODT) TAB ONE (15:46)
[2023-08-03 18:48] VITALS: BP 100/68; TEMP 98.6; O2SAT 96
== END 2023-08-03 15:42 | disposition home or self-care (01) ==
LOC: ER 14:12
DX: J10.1 Influenza due to other identified influenza virus with other respiratory manifestations (principal); Z11.52 Encounter for screening for COVID-19
CPT/HCPCS: 87635; 87804; 99284; Q0162

== ENCOUNTER 2023-12-23 10:42 | Emergency (ER) | payer SELFPAY ==
[2023-12-23] MEDS ORDERED: KETOROLAC 30 MG/ML INJ ONE (11:47)
--- NOTE | 2023-12-23 11:57 | RAD REPORT ---
EXAM DESCRIPTION: CT - Soft Tissue Neck W/Contr CLINICAL HISTORY: LN vs abscess Pain and swelling COMPARISON: No comparisons TECHNIQUE All CT scans are performed using dose optimization technique as appropriate and may includ e automated exposure control or mA/KV adjustment according to patient size. FINDINGS: No intrinsic neck mass is seen. Symmetric salivary glands are noted. Normal vocal cords. T hyroid gland is in size. Moderate subcutaneous inflammation and skin thickening is seen left posterior neck. There is 18 x 14 mm subcutaneous fluid density collection seen in the subcutaneous fat adjacent to the thickened skin suggesting subcutaneous abscess. IMPRESSION: Left posterior neck 18 mm subcutaneous abscess with adjacent skin thickening and subcuta neous inflammation.
[2023-12-23] MEDS ORDERED: LIDOCAINE 1% MPF 5 ML VIAL ONE (13:09)
--- NOTE | 2023-12-23 13:33 | EDPHYS ---
Physician Documentation [facility] Name: Arpit Sanchez Age: 38 yrs Sex: Male : 1985 Arrival Date: 12/23/2023 Time: 10:42 Bed 12 Private MD: ED Physician Chilo Ballesteros Historical: - Allergies: 12/22 11:06 PENICILLINS; aa5 - Home Meds: 11:06 None [Active]; aa5 - PMHx: 11:06 None; aa5 - PSHx: 11:06 ear as a child; aa5 - Immunization history:: Adult Immunizations unknown. - Infectious Disease History:: Denies. - Social history:: Smoking status: Patient reports the use of cigarette tobacco products. Vital Signs: 11:05 BP 139 / 94; Pulse 98; Resp 18 S; Temp 97.8(TE); Pulse Ox 96% on R/A; Weight 133.81 kg aa5 (R); Height 6 ft. 0 in. (R); 13:50 BP 122 / 76; Pulse 88; Resp 16; Temp 98.2(O); Pulse Ox 99% on R/A; Pain 2/10; tl4 11:05 Body Mass Index 40.01 (133.81 kg, 182.88 cm) aa5 13:50 Pain Scale: Adult tl4 MDM: 11:24 Patient medically screened. rt 12/22 11:29 Order name: CT Soft Tissue Neck W/contr; Complete Time: 11:58 rt 12/22 12:57 Order name: I\T\D Setup; Complete Time: 13:24 rt Administered Medications: 11:50 Drug: Ketorolac IVP 15 mg IVP once Route: IVP; Site: right antecubital; aa5 12:21 Follow up: Response: No adverse reaction; Pain is unchanged, physician notified tl4 13:24 Drug: Lidocaine Infiltration (1 %) 5 mg Infiltration once {Note: Administered by Dr jayson Ballesteros.} Route: Infiltration; Disposition Summary: 12/23/23 13:33 Discharge Ordered Notes: Location: Home rt Problem: new rt Symptoms: have improved rt Condition: Stable rt Diagnosis - Cutaneous abscess of scalp rt - Otitis media rt Followup: rt - With: Private Physician - When: 2 - 3 days - Reason: Discharge Instructions: - Discharge Summary Sheet rt - Skin Abscess rt - Otitis Media, Adult rt Forms: - Medication Reconciliation Form rt - Antibiotic Education rt - Prescription Opioid Use rt - Patient Portal Instructions rt - Leadership Thank You Letter rt Prescriptions: - Clindamycin HCl 300 mg Oral Capsule - take 1 capsule ORAL route every 6 hours for 10 days; 40 capsule; Refills: 0, rt Product Selection Permitted Signatures: Dispatcher [employer] eLxi Malagon RN RN aa5 Chilo Ballesteros MD MD rt Alexandr Ascencio RN RN tl4 Corrections: (The following items were deleted from the chart) 11:30 11:30 Soft Tissue Neck W/Contr+CT.RAD.BRZ ordered. EDMS EDMS
--- NOTE | 2023-12-23 13:33 | ER ---
Nurse's Notes [facility] Name: Arpit Sanchez Age: 38 yrs Sex: Male : 1985 Arrival Date: 12/23/2023 Time: 10:42 Bed 12 Private MD: Diagnosis: Cutaneous abscess of scalp;Otitis media Presentation: 12/22 11:05 Chief complaint: Patient states: "I have a boil on the left side of my head and it's aa5 been there for a while but now it's hurting". Coronavirus screen: At this time, the client does not indicate any symptoms associated with coronavirus-19. Ebola Screen: Patient denies travel to an Ebola-affected area in the 21 days before illness onset. Initial Sepsis Screen: Does the patient meet any 2 criteria? HR > 90 bpm. Does the patient have a suspected source of infection? No. Patient's initial sepsis screen is negative. Risk Assessment: Do you want to hurt yourself or someone else? Patient reports no desire to harm self or others. Onset of symptoms was 2023. 11:05 Acuity: JUSTO 4 aa5 11:05 Method Of Arrival: Ambulatory aa5 Historical: - Allergies: 11:06 PENICILLINS; aa5 - Home Meds: 11:06 None [Active]; aa5 - PMHx: 11:06 None; aa5 - PSHx: 11:06 ear as a child; aa5 - Immunization history:: Adult Immunizations unknown. - Infectious Disease History:: Denies. - Social history:: Smoking status: Patient reports the use of cigarette tobacco products. Screenin:22 [facility] ED Fall Risk Assessment (Adult) History of falling in the last 3 months, tl4 including since admission No falls in past 3 months (0 pts) Confusion or Disorientation No (0 pts) Intoxicated or Sedated No (0 pts) Impaired Gait No (0 pts) Mobility Assist Device Used No (0 pt) Altered Elimination No (0 pt) Score/Fall Risk Level 0 - 2 = Low Risk Oriented to surroundings, Maintained a safe environment, Educated pt \\T\\ family on fall prevention, incl call for assistance when getting out of bed, Assessed \\T\\ reinforced patient's understanding of fall precautions. Abuse screen: Denies threats or abuse. Denies injuries from another. Nutritional screening: No deficits noted. Tuberculosis screening: No symptoms or risk factors identified. Assessment: 01:30 Reassessment: No changes from previously documented assessment. Patient and/or family tl4 updated on plan of care and expected duration. Pain level reassessed. Patient is alert, oriented x 3, equal unlabored respirations, skin warm/dry/pink. 11:49 Reassessment: Patient is alert, oriented x 3, equal unlabored respirations, skin aa5 warm/dry/pink. Pt back from CT scan. Pt in bed, lights dimmed for comfort. . 12:23 General: Appears in no apparent distress. Behavior is calm, cooperative. Pain: tl4 Complains of pain in scalp. Neuro: Level of Consciousness is awake, alert, obeys commands, Oriented to person, place, time, situation, Moves all extremities. Full function Gait is steady, Speech is normal. Cardiovascular: Capillary refill < 3 seconds Patient's skin is warm and dry. Respiratory: Airway is patent Respiratory effort is even, unlabored, Respiratory pattern is regular, symmetrical, Breath sounds are clear bilaterally. GI: No signs and/or symptoms were reported involving the gastrointestinal system. : No signs and/or symptoms were reported regarding the genitourinary system. EENT: No signs and/or symptoms were reported regarding the EENT system. Derm: large raised bump at left side base of skull Reports pain that is 8 out of 10 on a pain scale. Musculoskeletal: No deficits noted. Vital Signs: 11:05 BP 139 / 94; Pulse 98; Resp 18 S; Temp 97.8(TE); Pulse Ox 96% on R/A; Weight 133.81 kg aa5 (R); Height 6 ft. 0 in. (R); 13:50 BP 122 / 76; Pulse 88; Resp 16; Temp 98.2(O); Pulse Ox 99% on R/A; Pain 2/10; tl4 11:05 Body Mass Index 40.01 (133.81 kg, 182.88 cm) aa5 13:50 Pain Scale: Adult tl4 ED Course: 10:44 Patient arrived in ED. im 11:05 Arm band placed on. aa5 11:06 Triage completed. aa5 11:15 Chilo Ballesteros MD is Attending Physician. rt 11:42 CT completed. Patient tolerated procedure well. Note: 20 g to rt ac by mirza in ct. [place] Patient moved to ID via wheelchair. Patient moved back from ID. 11:45 Inserted saline lock: 20 gauge in right antecubital area, using aseptic technique. IV aa5 inserted by HEATHER Jones tech. 11:46 CT Soft Tissue Neck W/contr In Process Unspecified. EDMS 12:21 Alexandr Ascencio, RN is Primary Nurse. tl4 12:25 Patient has correct armband on for positive identification. Bed in low position. Call tl4 light in reach. Side rails up X 1. Provided Education on: ED process. Client placed on continuous cardiac and pulse oximetry monitoring. NIBP monitoring applied. Door closed. Noise minimized. Lights dimmed. Moved to private room. Warm blanket given. 12:26 No provider procedures requiring assistance completed. tl4 13:50 IV discontinued, intact, bleeding controlled, No redness/swelling at site. Pressure tl4 dressing applied. Wound care: located on back of neck was dressed with Neosporin, 4X4s. Administered Medications: 11:50 Drug: Ketorolac IVP 15 mg IVP once Route: IVP; Site: right antecubital; aa5 12:21 Follow up: Response: No adverse reaction; Pain is unchanged, physician notified tl4 13:24 Drug: Lidocaine Infiltration (1 %) 5 mg Infiltration once {Note: Administered by Dr jayson Ballesteros.} Route: Infiltration; Medication: 12:22 VIS not applicable for this client. tl4 Outcome: 13:33 Discharge ordered by MD. rt 13:51 Discharged to home ambulatory, tl4 13:51 Condition: stable 13:51 Discharge instructions given to patient, Instructed on discharge instructions, follow up and referral plans. medication usage, Demonstrated understanding of instructions, follow-up care, medications, 13:52 Patient left the ED. tl4 Signatures: Dispatcher [employer] EDNC Lexi Holcomb RN RN aa5 Dominick Patel Ryan, MD MD rt Claudia Trinidad Toni, RN RN tl4 Corrections: (The following items were deleted from the chart) 11:53 11:50 Ketorolac IVP 15 mg IVP in right femoral aa5 aa5
[2023-12-23 14:39] VITALS: BP 122/76; TEMP 98.2; O2SAT 99
== END 2023-12-23 13:52 | disposition home or self-care (01) ==
LOC: ER 10:42
PROC: 0H90XZZ Drainage of Scalp Skin, External Approach (ICD-10-PCS; principal; 2023-12-23)
DX: L02.811 Cutaneous abscess of head [any part, except face] (principal); H66.90 Otitis media, unspecified, unspecified ear
CPT/HCPCS: 70491; J2001; Q9967

== ENCOUNTER 2024-09-06 21:10 | Emergency (ER) | payer SELFPAY ==
--- NOTE | 2024-09-06 21:50 | EDPHYS ---
Physician Documentation [facility] Name: Arpit Sanchez Age: 39 yrs Sex: Male : 1985 Arrival Date: 09/06/2024 Time: 21:10 Bed IW1 Private MD: ED Physician HPI: 09/06 21:15 This 39 yrs old Male presents to ER via Unassigned with complaints of Low Back sp4 Pain, Neck and Upper Back Pain. MDM: 21:40 Medical Screening Exam initiated sp4 Administered Medications: No medications were administered Disposition Summary: 09/06/24 21:50 Eloped Notes: Disposition: Before Triage vc1 Reason: unknown vc1 Signatures: Carly Lindo RN RN vc1 Jose J Walters MD MD sp4
--- NOTE | 2024-09-06 21:50 | ER ---
Nurse's Notes [facility] Name: Arpit Sanchez Age: 39 yrs Sex: Male : 1985 Arrival Date: 09/06/2024 Time: 21:10 Bed IW1 [facility] MD: Diagnosis: ED Course: 09/06 21:14 Patient arrived in ED. gm2 21:15 Jose J Walters MD is Attending Physician. sp4 21:17 Patient's name was called from ER lobby. No response. Unable to locate patient. Will vc1 disposition as left without being seen by a provider. 21:33 Patient's name was called from ER lobby. No response. ha1 21:36 Lulú Medina RN is Primary Nurse. al5 21:47 Lulú Medina RN is Primary Nurse. al5 21:49 Patient's name was called from ER lobby. No response. Unable to locate patient. Will vc1 disposition as left without being seen by a provider. Administered Medications: No medications were administered Outcome: 21:49 Eloped from waiting room, before seeing physician Time discovered patient gone: August 2024 at 21:17 21:49 Condition: good 21:50 Patient left the ED. 1 Signatures: Carly Lindo RN RN vc1 Alicia Washington RN RN ha1 Jose J Walters MD MD sp4 Maxine Vargas 2 Lulú Medina RN RN al5
== END 2024-09-06 21:50 | disposition left against medical advice (07) ==
LOC: ER 21:10
DX: Z02.9 Encounter for administrative examinations, unspecified (principal)